=== PATIENT | female | born 1985 | race Caucasian/White ===

== ENCOUNTER 2017-05-30 20:37 | Emergency (ER) | payer OTHER ==
[2017-05-30 20:59] VITALS: BP 109/67; PULSE 70; TEMP 98.4; BMI 21.2
[2017-05-30] MEDS ORDERED: PANTOPRAZOLE SODIUM 40 MG in SODIUM CHLORIDE 100 ML IVPB ONE (21:45)
[2017-05-30] MEDS ORDERED: PANTOPRAZOLE SODIUM 100 ML IVPB ONE (21:59)
[2017-05-30 22:04] LABS: PH,URINE 6.5 (5.0-8.0); URINE APPEARANCE CLEAR; URINE BILIRUBIN NEGATIVE (NEGATIVE); URINE BLOOD NEGATIVE (NEGATIVE); URINE COLOR LT. YELLOW; URINE GLUCOSE (UA) NEGATIVE (NEGATIVE); URINE KETONE NEGATIVE (NEGATIVE); URINE LEUK ESTERASE NEGATIVE (NEGATIVE); URINE NITRITE NEGATIVE (NEGATIVE); URINE PROTEIN NEGATIVE (NEGATIVE); URINE UROBILINOGEN 0.2 mg/dL (0.2-1.0)
[2017-05-30 22:07] LABS: BASOPHIL 0.4 % (0-2.0); EOSINOPHIL 1.2 % (0-4.5); MCHC 34.6 g/dl (32.0-36.0); MEAN CELL VOLUME 89.7 fl (80-96); MEAN PLT VOLUME 7.8 fl (7.5-11.1); NEUTROPHILS 65.6 % (42.8-82.8); PLATELET COUNT 201 K/MM3 (134-434); WHITE BLOOD COUNT 5.2 K/mm3 (4.0-10.0)
[2017-05-30] MEDS ORDERED: KETOROLAC TROMETHAMINE 30 MG/1 ML VIAL IVPUSH ONE (22:30)
[2017-05-30] MEDS ORDERED: ALPRAZolam 0.25 MG TABLET PO ONE ×2 (22:30→23:16)
[2017-05-30] MEDS ORDERED: KETOROLAC TROMETHAMINE 30 MG/1 ML VIAL ONE (22:32)
--- NOTE | 2017-05-30 22:32 | PDOC ---
History of Present Illness - General Chief Complaint: Respiratory Stated Complaint: PAIN Time Seen by Provider: 05/30/17 21:19 History Source: Patient, Spouse Exam Limitations: No Limitations - History of Present Illness Initial Comments: 05/30/17 22:27 31yo Female patient with no significant past medical history presents to ED with multiple complaints. Patient reports having CP and Back pain for the past few months, but yesterday got worse with trouble breathing. Patient states she took Motrin 600mg and Protonix 40mg from 2016 and felt better, but when symptoms return today the medications did not help. She denies fall, injury, n/v /d, fever, cough, congestion, , SOB, Abd pain, or any other complaints at this time. LNMP: May 09. Timing/Duration: getting worse Severity: mild Modifying Factors: improves with: medication. worse with: cold therapy, eating , immobilization, movement, rest, other Associated Symptoms: reports: chest pain. denies: denies symptoms, cough, diaphoresis, fever/chills, headaches, loss of appetite, malaise, nausea/vomiting , rash, seizure, shortness of breath, syncope, weakness, other Aspirin Received prior to arrival: Yes: no aspirin today. No: unknown, 81 mg x 1, 81 mg x 2, 81 mg x 3, 81 mg x 4, 325 mg x 1, provided at home, provided by EMS, provided by ED Past History - Travel Traveled outside of the country in the last 30 days: No Close contact w/someone who was outside of country & ill: No - Past Medical History Allergies/Adverse Reactions: Allergies Allergy/AdvReac Type Severity Reaction Status Date / Time No Known Allergies Allergy Verified 05/30/17 20:58 Home Medications: Ambulatory Orders Alprazolam [Xanax] 0.25 mg PO TID PRN #9 tablet MDD 3 tabs 05/30/17 Other medical history: denies - Surgical History Appendectomy: Yes - Suicide/Smoking/Psychosocial Hx Smoking History: Never smoked Review of Systems - Review of Systems Able to Perform ROS?: Yes Is the patient limited Welsh proficient: No Constitutional: No: Chills, Fever Respiratory: No: Cough, Shortness of Breath, Stridor, Wheezing, Productive cough Cardiac (ROS): Yes: Chest Pain. No: Edema, Lightheadedness, Palpitations, Syncope, Chest Tightness ABD/GI: No: Constipated, Diarrhea, Nausea, Poor Appetite, Poor Fluid Intake, Rectal Bleeding, Vomiting, Abdominal cramping : No: Burning, Dysuria, Flank Pain, Hematuria, Pain Musculoskeletal: Yes: Back Pain. No: Muscle Pain, Muscle Weakness Integumentary: No: Bruising, Dryness, Erythema, Sweating Neurological: Yes: Dizziness. No: Headache, Numbness, Paresthesia, Seizure, Tingling, Tremors, Weakness All Other Systems: Reviewed and Negative *Physical Exam - Vital Signs Last Vital Signs Temp Pulse Resp BP Pulse Ox 98.4 F 70 18 109/67 100 05/30/17 20:56 05/30/17 20:56 05/30/17 20:56 05/30/17 20:56 05/30/17 20:56 - Physical Exam General Appearance: Yes: Nourished, Appropriately Dressed. No: Apparent Distress, Mild Distress, Moderate Distress, Severe Distress HEENT: positive: EOMI, JENNIFER, Normal ENT Inspection, Normal Voice, Symmetrical, TMs Normal, Pharynx Normal. negative: Pharyngeal Erythema, Tonsillar Exudate, Tonsillar Erythema, Nasal Congestion, Rhinorrhea, TM Bulging, TM Dull, TM Erythema Neck: positive: Trachea midline, Normal Thyroid, Supple. negative: Rigid, Stridor, Lymphadenopathy (R), Lymphadenopathy (L), Tender lateral, Tender midline Respiratory/Chest: positive: Lungs Clear, Normal Breath Sounds. negative: Chest Tender, Respiratory Distress, Accessory Muscle Use, Labored Respiration, Rapid RR, Decreased Breath Sounds, Paradoxal Breathing, Rhonchi, Stridor, Wheezing Cardiovascular: positive: Regular Rhythm, Regular Rate Gastrointestinal/Abdominal: positive: Soft, Increased Bowel Sounds. negative: Normal Bowel Sounds, Tender, Distended, Guarding, Rebound, Tenderness Musculoskeletal: positive: Normal Inspection. negative: CVA Tenderness, Decreased Range of Motion, Vertebral Tenderness Extremity: positive: Normal Capillary Refill, Normal Inspection, Normal Range of Motion. negative: Pedal Edema, Swelling, Calf Tenderness, Erythema, Inflammation Integumentary: positive: Normal Color, Dry, Warm Neurologic: positive: enterprise resource planner II-XII NML intact, Fully Oriented, Alert, Normal Mood/ Affect, Normal Response, Motor Strength 5/5 ED Treatment Course - LABORATORY CBC & Chemistry Diagram: 05/30/17 21:50 05/30/17 21:50 - ADDITIONAL ORDERS Additional order review: Laboratory Results 05/30/17 21:50 Urine Color Lt. yellow Urine Appearance Clear Urine pH 6.5 Urine Protein Negative Urine Glucose (UA) Negative Urine Ketones Negative Urine Blood Negative Urine Nitrite Negative Urine Bilirubin Negative Urine Urobilinogen 0.2 Urine HCG, Qual Negative 05/30/17 21:50 RBC 3.91 MCV 89.7 MCHC 34.6 RDW 13.0 MPV 7.8 Neutrophils % 65.6 Lymphocytes % 25.7 Monocytes % 7.1 Eosinophils % 1.2 Basophils % 0.4 - RADIOLOGY Radiology Studies Ordered: Category Date Time Status CHEST PA & LAT [RAD] Stat Radiology 05/30/17 21:45 Taken - Medications Given in the ED: ED Medications Discontinued Medications Generic Name Dose Route Start Last Admin Trade Name Freq PRN Reason Stop Dose Admin Pantoprazole Sodium 40 mg/ 100 mls @ 200 mls/hr 05/30/17 21:45 05/30/17 22:11 Sodium Chloride IVPB 05/30/17 22:14 200 mls/hr ONCE ONE Administration *DC/Admit/Observation/Transfer Diagnosis at time of Disposition: Anxiety about health Gastroesophageal reflux disease Qualifiers: Esophagitis presence: without esophagitis Qualified Code(s): K21.9 - Gastro- esophageal reflux disease without esophagitis - Discharge Dispostion Disposition: HOME Condition at time of disposition: Improved Admit: No - Prescriptions Prescriptions: Alprazolam [Xanax] 0.25 mg PO TID PRN #9 tablet MDD 3 tabs PRN Reason: Anxiety - Referrals Referrals: STAFF,NOT ON [Primary Care Provider] - Adam Ogden MD [Staff Physician] - - Patient Instructions Printed Discharge Instructions: GERD Diet, DI for Gastroesophageal Reflux Disease (GERD) Additional Instructions: Follow up with Dr. Ogden (Gastroenterology). Call to schedule appointment. Take medications as prescribed. Do not drive, drink alcohol or operate heavy machinery while taking Xanax. Also, follow up with your primary care provider. Purchase [id number] Nexium for Reflux symptoms. Print Language: ESTONIAN
[2017-05-30] MEDS ORDERED: ALPRAZolam 0.25 MG TABLET ONE ×2 (22:34→23:19)
[2017-05-30 22:35] LABS: ALBUMIN 4.1 g/dl (3.4-5.0); ANION GAP 7 (8-16); BILIRUBIN,TOTAL 0.4 mg/dL (0.2-1.0); CALCIUM 8.4 mg/dL (8.5-10.1); CO2 29 mmol/L (21-32); CREATININE 0.6 mg/dL (0.55-1.02); GLUCOSE,RANDOM 99 mg/dL (74-106); SGOT/AST 11 U/L (15-37); SGPT/ALT 21 U/L (12-78); TOT PROT 7.3 g/dl (6.4-8.2)
[2017-05-30] MEDS ORDERED: ALBUTEROL SO4 0.042% IH SOL 1.25 MG/3 ML VIAL.NEB NEB ONE (22:36)
[2017-05-30 22:37] LABS: ALK PHOS 76 U/L (45-117); CPK 114 IU/L (26-192); TROPONIN I < 0.02 ng/ml (0.00-0.05)
[2017-05-30] MEDS ORDERED: ALBUTEROL SO4 0.083% IH SOL 2.5 MG/3 ML VIAL.NEB. NEB ONE (22:39)
== END 2017-05-30 23:24 | disposition home or self-care (01) ==
LOC: JERFT 20:37
PROC: 3E0F7GC Introduction of Other Therapeutic Substance into Respiratory Tract, Via Natural or Artificial Opening (ICD-10-PCS; principal; 2017-05-30)
PROC: 3E033GC Introduction of Other Therapeutic Substance into Peripheral Vein, Percutaneous Approach (ICD-10-PCS; 2017-05-30)
PROC: 3E0333Z Introduction of Anti-inflammatory into Peripheral Vein, Percutaneous Approach (ICD-10-PCS; 2017-05-30)
DX: K21.9 Gastro-esophageal reflux disease without esophagitis (principal); F06.4 Anxiety disorder due to known physiological condition
CPT/HCPCS: 36415; 71020-TC; 80053; 81003; 84484; 84703; 85025; 94640; 96365; 96375; 99281-25

== ENCOUNTER 2017-06-03 16:47 | Inpatient (IN) | payer OTHER ==
[2017-06-03 17:04] VITALS: BMI 21.2
--- NOTE | 2017-06-03 17:23 | PDOC ---
History of Present Illness <Adam Felder - Last Filed: 06/03/17 17:23> - History of Present Illness Initial Comments: 06/03/17 17:41 Patient is a 31 year old female with PMHx of chronic headaches, who presents to the emergency department complaining of chest pain today at 3:00 pm. Patient visited [facility] 4 days ago with the same complaint of chest pain. She reports having chest pain over a period of a couple of months. Patient returned to the emergency room because she believes that her medicine is not working. She is currently experience a moderate amount of pain and is moaning and rubbing her abdomen. Her chest pain originates in the center of her chest and radiates to her back. She is also experiencing SOB. She currently takes medication for chronic headaches. Allergies: NKA Past surgical history: None reported. Social history: Nonsmoker. Denies EtOH use and recreational drug use. <Gina Hartman - Last Filed: 06/03/17 17:54> <Liliam Severino - Last Filed: 06/03/17 22:46> - General Chief Complaint: Chest Pain Stated Complaint: CHEST PAIN Time Seen by Provider: 06/03/17 17:23 Past History - Past Medical History Other medical history: DENIES - Surgical History Appendectomy: Yes - Immunization History Immunization Up to Date: Yes - Suicide/Smoking/Psychosocial Hx Smoking History: Never smoked Have you smoked in the past 12 months: No Information on smoking cessation initiated: No Hx Alcohol Use: No Drug/Substance Use Hx: No <Adam Felder - Last Filed: 06/03/17 17:23> <Gina Hartman - Last Filed: 06/03/17 17:54> <Liliam Severino - Last Filed: 06/03/17 22:46> - Past Medical History Allergies/Adverse Reactions: Allergies Allergy/AdvReac Type Severity Reaction Status Date / Time No Known Allergies Allergy Verified 05/30/17 20:58 Home Medications: Ambulatory Orders Ibuprofen [Motrin -] 600 mg PO TID 06/03/17 Review of Systems - Review of Systems Comments:: 06/03/17 17:42 GENERAL/CONSTITUTIONAL: No fever or chills. No weakness. HEAD, EYES, EARS, NOSE AND THROAT: No change in vision. No ear pain or discharge. No sore throat. CARDIOVASCULAR: + chest pain. + shortness of breath. RESPIRATORY: No cough, wheezing, or hemoptysis. GASTROINTESTINAL: No nausea, vomiting, diarrhea or constipation. GENITOURINARY: No dysuria, frequency, or change in urination. MUSCULOSKELETAL: No joint or muscle swelling or pain. No neck or back pain. SKIN: No rash NEUROLOGIC: No headache, vertigo, loss of consciousness, or change in strength/ sensation. ENDOCRINE: No increased thirst. No abnormal weight change. HEMATOLOGIC/LYMPHATIC: No anemia, easy bleeding, or history of blood clots. ALLERGIC/IMMUNOLOGIC: No hives or skin allergy. <Gina Hartman - Last Filed: 06/03/17 17:54> *Physical Exam - Vital Signs Last Vital Signs Temp Pulse Resp BP Pulse Ox 98.2 F 95 H 16 126/74 100 06/03/17 17:00 06/03/17 17:00 06/03/17 17:00 06/03/17 17:00 06/03/17 17:00 <Adam Felder - Last Filed: 06/03/17 17:23> - Vital Signs Last Vital Signs Temp Pulse Resp BP Pulse Ox 98.2 F 95 H 16 126/74 100 06/03/17 17:00 06/03/17 17:00 06/03/17 17:00 06/03/17 17:00 06/03/17 17:00 - Physical Exam Comments: 06/03/17 17:42 GENERAL: Awake, alert, and fully oriented, in no acute distress HEAD: No signs of trauma EYES: PERRLA, EOMI, sclera anicteric, conjunctiva clear ENT: Auricles normal inspection, hearing grossly normal, nares patent, oropharynx clear without exudates. Moist mucosa NECK: Normal ROM, supple, no lymphadenopathy, JVD, or masses LUNGS: Breath sounds equal, clear to auscultation bilaterally. No wheezes, and no crackles HEART: Regular rate and rhythm, normal S1 and S2, no murmurs, rubs or gallops ABDOMEN: +RUQ tenderness. Soft, normoactive bowel sounds. No guarding, no rebound. No masses EXTREMITIES: Normal range of motion, no edema. No clubbing or cyanosis. No cords, erythema, or tenderness NEUROLOGICAL: Cranial nerves II through XII grossly intact. Normal speech, normal gait SKIN: Warm, Dry, normal turgor, no rashes or lesions noted. <Gina Hartman - Last Filed: 06/03/17 17:54> - Vital Signs Last Vital Signs Temp Pulse Resp BP Pulse Ox 98.2 F 95 H 16 126/74 100 06/03/17 17:00 06/03/17 17:00 06/03/17 17:00 06/03/17 17:00 06/03/17 17:00 <iLliam Severino - Last Filed: 06/03/17 22:46> Heart Score/ECG Review - ECG Impressions Comment:: 06/03/17 17:51 Normal sinus rhythm at 97 bpm Incomplete right bundle branch block <Gina Hartman - Last Filed: 06/03/17 17:54> ED Treatment Course - LABORATORY CBC & Chemistry Diagram: 06/03/17 18:00 06/03/17 18:30 - ADDITIONAL ORDERS Additional order review: Laboratory Results 06/03/17 06/03/17 06/03/17 Unknown 20:18 18:30 PT with INR INR D-Dimer Sodium Potassium Chloride Carbon Dioxide Anion Gap BUN Creatinine Creat Clearance w eGFR Random Glucose Calcium Total Bilirubin AST ALT Alkaline Phosphatase Creatine Kinase Troponin I Total Protein Albumin Lipase 136 Serum , Qual Negative Urine Color Yellow Urine Appearance Cloudy Urine pH 6.0 Ur Specific Amasa Urine Protein Negative Urine Glucose (UA) Negative Urine Ketones Negative Urine Blood Negative Urine Nitrite Negative Urine Bilirubin Negative Urine Urobilinogen Negative 06/03/17 06/03/17 06/03/17 18:30 18:30 18:00 PT with INR INR D-Dimer Sodium 139 Potassium 3.7 Chloride 106 Carbon Dioxide 27 Anion Gap 6 L BUN 13 Creatinine 0.5 L Creat Clearance w eGFR > 60 Random Glucose 128 H D Calcium 8.6 Total Bilirubin 0.3 D AST 191 H D ALT 102 H D Alkaline Phosphatase 104 D Creatine Kinase 79 Troponin I < 0.02 Total Protein 6.6 Albumin 3.6 Lipase Cancelled Serum , Qual Urine Color Urine Appearance Urine pH Ur Specific Amasa Urine Protein Urine Glucose (UA) Urine Ketones Urine Blood Urine Nitrite Urine Bilirubin Urine Urobilinogen 06/03/17 06/03/17 06/03/17 18:00 18:00 18:00 PT with INR 11.80 INR 1.07 D-Dimer 318 H Sodium Cancelled Potassium Cancelled Chloride Cancelled Carbon Dioxide Cancelled Anion Gap Cancelled BUN Cancelled Creatinine Cancelled Creat Clearance w eGFR Cancelled Random Glucose Cancelled Calcium Cancelled Total Bilirubin Cancelled AST Cancelled ALT Cancelled Alkaline Phosphatase Cancelled Creatine Kinase Cancelled Troponin I Cancelled Total Protein Cancelled Albumin Cancelled Lipase Serum , Qual Cancelled Urine Color Cancelled Urine Appearance Cancelled Urine pH Cancelled Ur Specific Amasa Cancelled Urine Protein Cancelled Urine Glucose (UA) Cancelled Urine Ketones Cancelled Urine Blood Cancelled Urine Nitrite Cancelled Urine Bilirubin Cancelled Urine Urobilinogen Cancelled 06/03/17 18:00 RBC 3.89 MCV 90.2 MCHC 34.2 RDW 12.9 MPV 8.5 Neutrophils % 71.4 Lymphocytes % 21.5 Monocytes % 5.6 Eosinophils % 1.1 Basophils % 0.4 - Medications Given in the ED: ED Medications Discontinued Medications Generic Name Dose Route Start Last Admin Trade Name Freq PRN Reason Stop Dose Admin Hydromorphone HCl 0.5 mg 06/03/17 17:33 06/03/17 18:12 Dilaudid Injection - IVPUSH 06/03/17 17:34 0.5 mg ONCE ONE Administration Ketorolac Tromethamine 30 mg 06/03/17 17:33 06/03/17 18:13 Toradol Injection - IVPUSH 06/03/17 17:34 30 mg ONCE ONE Administration Ondansetron HCl 4 mg 06/03/17 17:33 06/03/17 18:14 Zofran Injection IVPUSH 06/03/17 17:34 4 mg ONCE ONE Administration <Liliam Severino - Last Filed: 06/03/17 22:46> *DC/Admit/Observation/Transfer - Attestations Physician Attestion: 06/03/17 17:23 I, Dr. Adam Felder, attest that this document has been prepared under my direction and personally reviewed by me in its entirety. I further attest, that it accurately reflects all work, treatment, procedures and medical decision -making performed by me. <Adam Felder - Last Filed: 06/03/17 17:23> - Attestations Scribe Attestion: 06/03/17 17:43 Documentation prepared by Gina Hartman, acting as vice president medical affairs for Adam Felder DO. <Gina Hartman - Last Filed: 06/03/17 17:54> - Discharge Dispostion Admit: Yes <Liliam Severino - Last Filed: 06/03/17 22:46> Diagnosis at time of Disposition: Calculus of common bile duct with acute cholecystitis
[2017-06-03] MEDS ORDERED: KETOROLAC TROMETHAMINE 30 MG/1 ML VIAL IVPUSH ONE (17:33)
[2017-06-03] MEDS ORDERED: ONDANSETRON 4 MG/2 ML VIAL IVPUSH ONE (17:33)
[2017-06-03] MEDS ORDERED: HYDROmorphone HCL CARPU-JECT 1 MG/1 ML DISP.SYRIN IVPUSH ONE (17:33)
[2017-06-03] MEDS ORDERED: ONDANSETRON 4 MG/2 ML VIAL ONE ×2 (17:56→17:57)
[2017-06-03] MEDS ORDERED: HYDROmorphone HCL CARPU-JECT 1 MG/1 ML DISP.SYRIN ONE (17:56)
[2017-06-03] MEDS ORDERED: KETOROLAC TROMETHAMINE 30 MG/1 ML VIAL ONE (17:56)
[2017-06-03 18:15] LABS: BASOPHIL 0.4 % (0-2.0); EOSINOPHIL 1.1 % (0-4.5); MCH 30.9 pg (25.7-33.7); MCHC 34.2 g/dl (32.0-36.0); MEAN CELL VOLUME 90.2 fl (80-96); MEAN PLT VOLUME 8.5 fl (7.5-11.1); NEUTROPHILS 71.4 % (42.8-82.8); PLATELET COUNT 206 K/MM3 (134-434); RDW 12.9 % (11.6-15.6)
[2017-06-03 19:01] LABS: INR 1.07 (0.82-1.09); PROTHROMBIN TIME (PATIENT) 11.8 SEC (9.98-11.88)
[2017-06-03 19:40] LABS: ALBUMIN 3.6 g/dl (3.4-5.0); ANION GAP 6 (8-16); BILIRUBIN,TOTAL 0.3 mg/dL (0.2-1.0); CALCIUM 8.6 mg/dL (8.5-10.1); CO2 27 mmol/L (21-32); CREATININE 0.5 mg/dL (0.55-1.02); GLUCOSE,RANDOM 128 mg/dL (74-106); SGOT/AST 191 U/L (15-37); SGPT/ALT 102 U/L (12-78); TOT PROT 6.6 g/dl (6.4-8.2)
[2017-06-03 19:41] LABS: ALK PHOS 104 U/L (45-117)
[2017-06-03 19:48] LABS: CPK 79 IU/L (26-192); TROPONIN I < 0.02 ng/ml (0.00-0.05)
[2017-06-03 20:40] LABS: URINE APPEARANCE CLOUDY; URINE BILIRUBIN NEGATIVE (NEGATIVE); URINE BLOOD NEGATIVE (NEGATIVE); URINE COLOR YELLOW; URINE GLUCOSE (UA) NEGATIVE (NEGATIVE); URINE KETONE NEGATIVE (NEGATIVE); URINE LEUK ESTERASE NEGATIVE (NEGATIVE); URINE NITRITE NEGATIVE (NEGATIVE); URINE PROTEIN NEGATIVE (NEGATIVE); URINE UROBILINOGEN NEGATIVE mg/dL (0.2-1.0)
--- NOTE | 2017-06-03 22:41 | PN ---
Teaching Attending Note Name of Resident: Ugo David ATTENDING PHYSICIAN STATEMENT I saw and evaluated the patient. I reviewed the resident's note and discussed the case with the resident. I agree with the resident's findings and plan as documented. SUBJECTIVE: 31 yo F with hx of chronic headaches who presented with chest pain radiating to her back. States that her pain is located in her upper epigastric pain. States her chest pain is located on the left side, more toward her left breast and she states it is tender when she touched her left chest. OBJECTIVE: Physical: VS: Vital Signs Period Temp Pulse Resp BP Sys/Juares Pulse Ox Last 24 Hr 98.2 F 95 16 126/74 100 GEN: NAD, Resting in bed HEENT: NCAT, PERRL, throat without erythema or exudated CARD: RRR S1, S2 RESP: CTAB ABD: BSx4, tender to palpation in right upper quadrant EXT: - C/C/E CBCD WBC 5.0 K/mm3 (4.0-10.0) 06/03/17 18:00 RBC 3.89 M/mm3 (3.60-5.2) 06/03/17 18:00 Hgb 12.0 GM/dL (10.7-15.3) 06/03/17 18:00 Hct 35.1 % (32.4-45.2) 06/03/17 18:00 MCV 90.2 fl (80-96) 06/03/17 18:00 MCHC 34.2 g/dl (32.0-36.0) 06/03/17 18:00 RDW 12.9 % (11.6-15.6) 06/03/17 18:00 Plt Count 206 K/MM3 (134-434) 06/03/17 18:00 MPV 8.5 fl (7.5-11.1) 06/03/17 18:00 CMP Sodium 139 mmol/L (136-145) 06/03/17 18:30 Potassium 3.7 mmol/L (3.5-5.1) 06/03/17 18:30 Chloride 106 mmol/L (98-107) 06/03/17 18:30 Carbon Dioxide 27 mmol/L (21-32) 06/03/17 18:30 Anion Gap 6 (8-16) L 06/03/17 18:30 BUN 13 mg/dL (7-18) 06/03/17 18:30 Creatinine 0.5 mg/dL (0.55-1.02) L 06/03/17 18:30 Creat Clearance w eGFR > 60 (>60) 06/03/17 18:30 Random Glucose 128 mg/dL (74-106) H D 06/03/17 18:30 Calcium 8.6 mg/dL (8.5-10.1) 06/03/17 18:30 Total Bilirubin 0.3 mg/dL (0.2-1.0) D 06/03/17 18:30 AST 191 U/L (15-37) H D 06/03/17 18:30 ALT 102 U/L (12-78) H D 06/03/17 18:30 Alkaline Phosphatase 104 U/L (45-117) D 06/03/17 18:30 Total Protein 6.6 g/dl (6.4-8.2) 06/03/17 18:30 Albumin 3.6 g/dl (3.4-5.0) 06/03/17 18:30 CARDIAC ENZYMES Creatine Kinase 79 IU/L (26-192) 06/03/17 18:30 Troponin I < 0.02 ng/ml (0.00-0.05) 06/03/17 18:30 EKG: NSR Incomplete RBBB CTA- Negative for PE or any acute process Gallbladder Us: Multiple gallstones with mild wall thickening and w/o evidence of pericholycystic free fluid. Dilated CBD with intraluminal stone 14 X 8 mm in saggital and AP dimension. ASSESSMENT AND PLAN: 31 yo F who presented with chest pain found to have choledocholithiaisis 1.) Choledocholithiasis - NPO - MRCP in am - GI consult - Trend LFTS - Type and Screen - Coags - pain control 2.) Chest Pain- Most likely [place], doubt ACS - Trend Trops/EKG - Heart 1 3.) Dvt Ppx - Low Risk - Ambulate Place in Med-Sx
--- NOTE | 2017-06-03 23:39 | HP ---
Admitting History and Physical - Primary Care Physician PCP: not on staff - Admission History of Present Illness: 31F history of migraines presents to the ED with a few day history of chest pain and abdominal pain. Seen in ED here on 05/30/17 and sent out with candace thought to have anxiety. Presents again with similar symtpoms CTA ruled out PE. RUQ US shows choloedocholithiasis. Per patient she hgad an endoscopy as an outpatient this past friday and was told she needs an ultrasound due to a possible stone. She has mamograms every 6 months for some kind of breast mass patient is unsure and yearly MRIs for headaches unsure why. History Source: Patient Limitations to Obtaining History: Language Barrier - Past Medical History Additional Past Medical History: migraines breast mass - Past Surgical History Past Surgical History: Yes: Appendectomy - Smoking History Smoking history: Never smoked Have you smoked in the past 12 months: No - Alcohol/Substance Use Hx Alcohol Use: No Home Medications - Allergies Allergies/Adverse Reactions: Allergies Allergy/AdvReac Type Severity Reaction Status Date / Time No Known Allergies Allergy Verified 05/30/17 20:58 - Home Medications Home Medications: Ambulatory Orders Ibuprofen [Motrin -] 600 mg PO TID 06/03/17 Family Disease History - Family Disease History Family Disease History: Other: Father (gall stones), Mother (gall stones ) Review of Systems - Review of Systems Gastrointestinal: reports: Abdominal Pain. denies: Constipation, Diarrhea, Indigestion, Vomiting Physical Examination Vital Signs: Vital Signs Temperature 98.2 F 06/03/17 17:00 Pulse Rate 95 H 06/03/17 17:00 Respiratory Rate 16 06/03/17 17:00 Blood Pressure 126/74 06/03/17 17:00 O2 Sat by Pulse Oximetry (%) 100 06/03/17 17:00 Constitutional: Yes: Well Nourished, No Distress, Calm Eyes: Yes: Conjunctiva Clear HENT: Yes: Atraumatic Neck: Yes: Supple, Trachea Midline Cardiovascular: Yes: Regular Rate and Rhythm, S1, S2 Respiratory: Yes: Regular, CTA Bilaterally Gastrointestinal: Yes: Normal Bowel Sounds, Soft, Tenderness (slight RUQ tenderness negative murphys) Edema: No Psychiatric: Yes: Alert, Oriented Labs: CBC, BMP 06/03/17 18:00 06/03/17 18:30 Imaging - Results Chest X-ray: Report Reviewed, Image Reviewed Cat Scan: Report Reviewed, Image Reviewed Ultrasound: Report Reviewed Assessment/Plan 31F with no significant PMH presents to the ED with chest pain found to have choledocholithiasis Problem list: Choledocholithisis chronic migraines ?? Brain lesion ?? breast lesion hyperglycemia Plan: Admit to med surg NPO IVF GI consult Surgery consult no need for ABx at this time afebrile and no leukocytosis hyperglycemia likely reactive will monitor and get HbA1c if necessary MRCP although may need to go straight to ERCP outpatient follow up for continued preventive care DVT PPx full h&P to follow case discussed with admitting intern brand and attending Visit type - Emergency Visit Emergency Visit: Yes Care time: The patient presented to the Emergency Department on the above date and was hospitalized for further evaluation of their emergent condition. - New Patient This patient is new to me today: Yes Date on this admission: 06/04/17 - Critical Care Critical Care patient: No
[2017-06-04] MEDS ORDERED: ACETAMINOPHEN 325 MG TABLET (FP) PO PRN (00:06)
[2017-06-04] MEDS: SODIUM CHLORIDE 1,000 ML IV SCH ×3 (00:29→11:52)
--- NOTE | 2017-06-04 00:30 | HP ---
CHIEF COMPLAINT: Upper abdominal pain PCP: Mac Martinez in [place] HISTORY OF PRESENT ILLNESS: Pt is a 31 y/o F with PMH brain lesion (stable), breast lesion (stable), migraine who presented to ED with upper abdominal pain. Pain is sharp, radiates to the chest and back, is severe 10/10, and is associated with eating. The patient was recently seen in the ED for similar complaint and was referred to see a GI specialist as an out pt. Pt lives in [place] and works in [employer] ER course was notable for: (1) labs remarkable for positive D-dimer, mild transaminitis (2) CXR, CTA unremarkable. GB U/S positive for 14mm stone in distal CBD with CBD dilation (3) Recent Travel: denies PAST MEDICAL HISTORY: Brain lesion (unclear what exactly) for which pt sees her doctor in [place] and gets yearly MRI. Pt states it is stable Breast lesion (unclear what type) for which pt gets mamograms every 6 months Migraine PAST SURGICAL HISTORY: Appendectomy Social History: Smoking: Denies Alcohol: Denies Drugs: Denies Family History: Both parents had gall stones Allergies No Known Allergies Allergy (Verified 05/30/17 20:58) fruit HOME MEDICATIONS: Motrin 600mg, Xanax 0.25mg PO TID PRN REVIEW OF SYSTEMS CONSTITUTIONAL: Absent: fever, chills, diaphoresis, generalized weakness, malaise, loss of appetite, weight change HEENT: Absent: rhinorrhea, nasal congestion, throat pain, throat swelling, difficulty swallowing, mouth swelling, ear pain, eye pain, visual changes CARDIOVASCULAR: chest pain Absent: , syncope, palpitations, irregular heart rate, lightheadedness, peripheral edema RESPIRATORY: Absent: cough, shortness of breath, dyspnea with exertion, orthopnea, wheezing, stridor, hemoptysis GASTROINTESTINAL: abdominal pain Absent: , abdominal distension, nausea, vomiting, diarrhea, constipation, melena , hematochezia GENITOURINARY: Absent: dysuria, frequency, urgency, hesitancy, hematuria, flank pain, genital pain MUSCULOSKELETAL: Absent: myalgia, arthralgia, joint swelling, back pain, neck pain SKIN: Absent: rash, itching, pallor HEMATOLOGIC/IMMUNOLOGIC: Absent: easy bleeding, easy bruising, lymphadenopathy, frequent infections ENDOCRINE: Absent: unexplained weight gain, unexplained weight loss, heat intolerance, cold intolerance NEUROLOGIC: Absent: headache, focal weakness or paresthesias, dizziness, unsteady gait, seizure, mental status changes, bladder or bowel incontinence PSYCHIATRIC: Absent: anxiety, depression, suicidal or homicidal ideation, hallucinations. PHYSICAL EXAMINATION Vital Signs - 24 hr 06/03/17 17:00 Temperature 98.2 F Pulse Rate 95 H Respiratory 16 Rate Blood Pressure 126/74 O2 Sat by Pulse 100 Oximetry (%) GENERAL: Awake, alert, and fully oriented, in no acute distress. HEAD: Normal with no signs of trauma. EYES: Pupils equal, round and reactive to light, extraocular movements intact, sclera anicteric, conjunctiva clear. No lid lag. EARS, NOSE, THROAT: oropharynx clear without exudates. Moist mucous membranes. Equal elevation of palate NECK: Normal range of motion, supple without lymphadenopathy, JVD, or masses. No bruits LUNGS: Breath sounds equal, clear to auscultation bilaterally. No wheezes, and no crackles. No accessory muscle use. HEART: Regular rate and rhythm, normal S1 and S2 with soft 2/6 ejection murmur at RUSB, rub or gallop. ABDOMEN: Soft, very mild tenderness to palpation. Wilson's negative., not distended, normoactive bowel sounds, no guarding, no rebound, no masses. No hepatomegaly or splenomegaly. MUSCULOSKELETAL: No CVA tenderness. UPPER EXTREMITIES: 2+ pulses, warm, well-perfused. No cyanosis. No clubbing. No peripheral edema. LOWER EXTREMITIES: 2+ pulses, warm, well-perfused. No calf tenderness. No peripheral edema. NEUROLOGICAL: Cranial nerves II-XII intact. Normal speech. gait not observed. PSYCHIATRIC: Cooperative. Good eye contact. Appropriate mood and affect. SKIN: Warm, dry, normal turgor, no rashes or lesions noted, normal capillary refill. Laboratory Results - last 24 hr 06/03/17 06/03/17 06/03/17 18:00 18:00 18:00 WBC 5.0 RBC 3.89 Hgb 12.0 Hct 35.1 MCV 90.2 MCH 30.9 MCHC 34.2 RDW 12.9 Plt Count 206 MPV 8.5 Neutrophils % 71.4 Lymphocytes % 21.5 Monocytes % 5.6 Eosinophils % 1.1 Basophils % 0.4 PT with INR 11.80 INR 1.07 D-Dimer 318 H Sodium Potassium Chloride Carbon Dioxide Anion Gap BUN Creatinine Creat Clearance w eGFR Random Glucose Calcium Total Bilirubin AST ALT Alkaline Phosphatase Creatine Kinase Troponin I Total Protein Albumin Lipase Serum , Qual Cancelled Urine Color Cancelled Urine Appearance Cancelled Urine pH Cancelled Ur Specific [place] Cancelled Urine Protein Cancelled Urine Glucose (UA) Cancelled Urine Ketones Cancelled Urine Blood Cancelled Urine Nitrite Cancelled Urine Bilirubin Cancelled Urine Urobilinogen Cancelled 06/03/17 06/03/17 06/03/17 18:00 18:00 18:30 WBC RBC Hgb Hct MCV MCH MCHC RDW Plt Count MPV Neutrophils % Lymphocytes % Monocytes % Eosinophils % Basophils % PT with INR INR D-Dimer Sodium Cancelled 139 Potassium Cancelled 3.7 Chloride Cancelled 106 Carbon Dioxide Cancelled 27 Anion Gap Cancelled 6 L BUN Cancelled 13 Creatinine Cancelled 0.5 L Creat Clearance w eGFR Cancelled > 60 Random Glucose Cancelled 128 H D Calcium Cancelled 8.6 Total Bilirubin Cancelled 0.3 D AST Cancelled 191 H D ALT Cancelled 102 H D Alkaline Phosphatase Cancelled 104 D Creatine Kinase Cancelled Troponin I Cancelled Total Protein Cancelled 6.6 Albumin Cancelled 3.6 Lipase Cancelled Serum , Qual Urine Color Urine Appearance Urine pH Ur Specific [place] Urine Protein Urine Glucose (UA) Urine Ketones Urine Blood Urine Nitrite Urine Bilirubin Urine Urobilinogen 06/03/17 06/03/17 06/03/17 18:30 18:30 20:18 WBC RBC Hgb Hct MCV MCH MCHC RDW Plt Count MPV Neutrophils % Lymphocytes % Monocytes % Eosinophils % Basophils % PT with INR INR D-Dimer Sodium Potassium Chloride Carbon Dioxide Anion Gap BUN Creatinine Creat Clearance w eGFR Random Glucose Calcium Total Bilirubin AST ALT Alkaline Phosphatase Creatine Kinase 79 Troponin I < 0.02 Total Protein Albumin Lipase 136 Serum , Qual Urine Color Yellow Urine Appearance Cloudy Urine pH 6.0 Ur Specific [place] 1.020 Urine Protein Negative Urine Glucose (UA) Negative Urine Ketones Negative Urine Blood Negative Urine Nitrite Negative Urine Bilirubin Negative Urine Urobilinogen Negative 06/03/17 Unknown WBC RBC Hgb Hct MCV MCH MCHC RDW Plt Count MPV Neutrophils % Lymphocytes % Monocytes % Eosinophils % Basophils % PT with INR INR D-Dimer Sodium Potassium Chloride Carbon Dioxide Anion Gap BUN Creatinine Creat Clearance w eGFR Random Glucose Calcium Total Bilirubin AST ALT Alkaline Phosphatase Creatine Kinase Troponin I Total Protein Albumin Lipase Serum , Qual Negative Urine Color Urine Appearance Urine pH Ur Specific [place] Urine Protein Urine Glucose (UA) Urine Ketones Urine Blood Urine Nitrite Urine Bilirubin Urine Urobilinogen ASSESSMENT/PLAN: Pt is a 31 y/o F with PMH brain lesion (stable), breast lesion (stable), migraine who presented to ED with abdominal pain. Pt is being admitted for choledocholithiasis. #Choledocholithiasis -RUQ pain. No nausea/vomiting -14mm distal CBD stone on U/S -No pericholecystic fluid, mild wall thickening -Hold Abx as there is no sign of Ascending Cholangitis (no fever, no leukocytosis, mild discomfort). Will monitor. -ERCP in am -NPO -NS at 100 -Zofran PRN -Tylenol 650 PRN, Morphine 2mg Q6 PRN #Transaminitis -likely 2/2 choledocholithiasis -trend LFTs -GI consult #GERD -symptoms possibly 2/2 choledocholithiasis -pt went home with protonix last visit and said it did not help -No clear GERD symptoms at this time. Will monitor #Migraine -Tylenol PRN -Morphine PRN #Breast lesion -f/u outpatient as per PCP #Brain lesion -f/u outpatient as per PCP #FEN -NS @ 100 -lytes WNL -NPO #Dispo: Admit to Med-Surg for choledocholithiasis workup and treatment Case discussed with senior Ugo David MD PGY-1 Visit type - Emergency Visit Emergency Visit: Yes ED Registration Date: 06/03/17 Care time: The patient presented to the Emergency Department on the above date and was hospitalized for further evaluation of their emergent condition. - New Patient This patient is new to me today: Yes Date on this admission: 06/05/17 - Critical Care Critical Care patient: No
[2017-06-04] MEDS ORDERED: HEPARIN NA (PORCINE) 5,000 UNITS/ML 1ML VIAL SQ SCH (06:00)
[2017-06-04 06:29] LABS: BASOPHIL 0.3 % (0-2.0); EOSINOPHIL 0.7 % (0-4.5); MCH 31.1 pg (25.7-33.7); MCHC 34.7 g/dl (32.0-36.0); MEAN CELL VOLUME 89.8 fl (80-96); MEAN PLT VOLUME 7.8 fl (7.5-11.1); NEUTROPHILS 66.6 % (42.8-82.8); PLATELET COUNT 192 K/MM3 (134-434); RDW 12.9 % (11.6-15.6); WHITE BLOOD COUNT 5.4 K/mm3 (4.0-10.0)
[2017-06-04 06:41] LABS: INR 1.11 (0.82-1.09); PROTHROMBIN TIME (PATIENT) 12.2 SEC (9.98-11.88)
[2017-06-04 06:44] LABS: ACTIVATED PTT 33.1 SECONDS (26.9-34.4)
[2017-06-04 06:52] LABS: ALBUMIN 3.4 g/dl (3.4-5.0); ANION GAP 9 (8-16); BILIRUBIN,TOTAL 0.4 mg/dL (0.2-1.0); CALCIUM 7.9 mg/dL (8.5-10.1); CO2 25 mmol/L (21-32); CREATININE 0.3 mg/dL (0.55-1.02); GLUCOSE,RANDOM 84 mg/dL (74-106); MAGNESIUM 1.9 mg/dL (1.8-2.4); PHOSPHOROUS 2.7 mg/dL (2.5-4.9); SGOT/AST 77 U/L (15-37); SGPT/ALT 114 U/L (12-78); TOT PROT 6.1 g/dl (6.4-8.2)
[2017-06-04 06:53] LABS: ALK PHOS 96 U/L (45-117)
[2017-06-04 07:06] LABS: CPK 63 IU/L (26-192); TROPONIN I < 0.02 ng/ml (0.00-0.05)
--- NOTE | 2017-06-04 08:00 | PN ---
Physical Exam: SUBJECTIVE: Patient seen and examined at bedside. States that pain is controlled. No nausea today. No new complaints. OBJECTIVE: Vital Signs Period Temp Pulse Resp BP Sys/Juares Pulse Ox Last 24 Hr 70 103/59 97 GENERAL: The patient is awake, alert, and fully oriented, in no acute distress. HEAD: Normal with no signs of trauma. EYES: PERRL, extraocular movements intact, sclera anicteric, conjunctiva clear. No ptosis. ENT: oropharynx clear without exudates, moist mucous membranes. NECK: Trachea midline, full range of motion, supple. LUNGS: Breath sounds equal, clear to auscultation bilaterally, no wheezes, no crackles, no accessory muscle use. HEART: Regular rate and rhythm, S1, S2 without murmur, rub or gallop. ABDOMEN: Soft, mild tenderness to palpation in the lower quadrants, nondistended , normoactive bowel sounds, no guarding, no rebound, no hepatosplenomegaly, no masses. Wilson sign positive EXTREMITIES: 2+ pulses, warm, well-perfused, no edema. NEUROLOGICAL: Cranial nerves II through X grossly intact. Normal speech, gait not observed. normal strength, sensation intact. PSYCH: Normal mood, normal affect. SKIN: Warm, dry, normal turgor, no rashes or lesions noted Laboratory Results - last 24 hr 06/03/17 06/04/17 06/04/17 Unknown 06:00 06:00 WBC 5.4 RBC 3.79 Hgb 11.8 Hct 34.0 MCV 89.8 MCH 31.1 MCHC 34.7 RDW 12.9 Plt Count 192 MPV 7.8 Neutrophils % 66.6 Lymphocytes % 27.2 D Monocytes % 5.2 Eosinophils % 0.7 Basophils % 0.3 PT with INR INR PTT (Actin FS) Sodium Potassium Chloride Carbon Dioxide Anion Gap BUN Creatinine Creat Clearance w eGFR Random Glucose Calcium Phosphorus Magnesium Total Bilirubin AST ALT Alkaline Phosphatase Creatine Kinase 63 Troponin I < 0.02 Total Protein Albumin Serum , Qual Negative 06/04/17 06/04/17 06:00 06:00 WBC RBC Hgb Hct MCV MCH MCHC RDW Plt Count MPV Neutrophils % Lymphocytes % Monocytes % Eosinophils % Basophils % PT with INR 12.20 H INR 1.11 PTT (Actin FS) 33.1 Sodium 142 Potassium 3.7 Chloride 108 H Carbon Dioxide 25 Anion Gap 9 BUN 10 D Creatinine 0.3 L D Creat Clearance w eGFR > 60 Random Glucose 84 D Calcium 7.9 L Phosphorus 2.7 Magnesium 1.9 Total Bilirubin 0.4 D AST 77 H D ALT 114 H Alkaline Phosphatase 96 Creatine Kinase Troponin I Total Protein 6.1 L Albumin 3.4 Serum , Qual Active Medications Generic Name Dose Route Start Last Admin Trade Name Freq PRN Reason Stop Dose Admin Sodium Chloride 1,000 mls @ 100 mls/hr 06/03/17 23:45 06/04/17 00:29 Normal Saline - IV 100 mls/hr ASDIR PEDRO Administration Sodium Chloride 1,000 mls @ 75 mls/hr 06/04/17 01:45 06/04/17 02:00 Normal Saline - IV 75 mls/hr ASDIR PEDRO Administration Morphine Sulfate 2 mg 06/03/17 23:46 Morphine Injection - IVPUSH Q4H PRN PAIN Ondansetron HCl 4 mg 06/04/17 00:03 Zofran Injection IVPB Q4H PRN NAUSEA AND/OR VOMITING ASSESSMENT/PLAN: Pt is a 31 y/o F with PMH brain lesion (stable), breast lesion (stable), migraine who presented to ED with abdominal pain. Pt is being admitted for choledocholithiasis. #RUQ tenderness 2/2 Choledocholithiasis -RUQ US shows 14mm distal CBD stone, No pericholecystic fluid, mild wall thickening -Abx Held as there is no sign of infection at this time -GI consult suggests ERCP -surgery consult for possible cholecystectomy -NS at 100 -Zofran PRN -Tylenol 650 PRN, Morphine 2mg Q6 PRN #Transaminitis -likely 2/2 choledocholithiasis -trend LFTs #GERD -symptoms possibly 2/2 choledocholithiasis -No clear GERD symptoms at this time. Will monitor #Migraines -Tylenol PRN -Morphine PRN #Breast lesion -f/u outpatient as per PCP -c/o breast pain today; patient is due to begin menstruation soon; will monitor #Brain lesion -f/u outpatient as per PCP #FEN -NS @ 100 -lytes WNL -NPO #Dispo: -Admit to Med-Surg for choledocholithiasis workup and treatment Visit type - Emergency Visit Emergency Visit: Yes ED Registration Date: 06/03/17 Care time: The patient presented to the Emergency Department on the above date and was hospitalized for further evaluation of their emergent condition. - New Patient This patient is new to me today: Yes Date on this admission: 06/04/17 - Critical Care Critical Care patient: No
--- NOTE | 2017-06-04 09:20 | CONSULT ---
Consult Consult Specialty:: GI Referred by:: Dr. Atwood Reason for Consultation:: abdominal pain - History of Present Illness History of Present Illness: Chart and H&P reviewed. Epigastric pain of 2 days duration with nausea, w/o vomiting, fever, chills, diarrhea. Acute onset, no alleviating/aggravating factors. No dysphagia, odynophagia, GERD-like symptoms. No prior history of the same. No ill contacts, traveling. - History Source History Provided By: Patient, Medical Record Limitations to Obtaining History: No Limitations - Past Medical History Gastrointestinal: No: Constipation, GERD, GI Bleed, Irritable Bowel Disease, Pancreatitis, Peptic Ulcer Disease - Past Surgical History Past Surgical History: Yes: Appendectomy - Alcohol/Substance Use Hx Alcohol Use: No - Smoking History Smoking history: Never smoked Have you smoked in the past 12 months: No Home Medications - Allergies Allergies/Adverse Reactions: Allergies Allergy/AdvReac Type Severity Reaction Status Date / Time No Known Allergies Allergy Verified 05/30/17 20:58 - Home Medications Home Medications: Ambulatory Orders Ibuprofen [Motrin -] 600 mg PO TID 06/03/17 Family Disease History - Family Disease History Family History: Unremarkable Family Disease History: Other: Father (gall stones), Mother (gall stones ) Review of Systems Findings/Remarks: H&P reviewed - Review of Systems Constitutional: denies: Chills, Fever, Lethargy, Night Sweats, Unintentional Wgt. Loss HENT: reports: No Symptoms Neck: reports: No Symptoms Cardiovascular: reports: No Symptoms Respiratory: reports: No Symptoms Gastrointestinal: reports: Abdominal Pain, Nausea. denies: Bloating, Constipation, Diarrhea, Dysphagia, Indigestion, Melena, Rectal Bleeding, Vomiting, Vomiting Blood Genitourinary: reports: No Symptoms Breasts: reports: Other (r. breast pain, chronic, 4 systs) Musculoskeletal: reports: Back Pain (mid scapular) Hematology/Lymphatic: denies: Easily Bruised, Excessive Bleeding Physical Exam Vital Signs: Vital Signs Temperature 98.2 F 06/03/17 17:00 Pulse Rate 70 06/04/17 07:15 Respiratory Rate 16 06/03/17 17:00 Blood Pressure 103/59 06/04/17 07:15 O2 Sat by Pulse Oximetry (%) 97 06/04/17 07:15 Constitutional: Yes: Well Nourished, No Distress, Calm Eyes: Yes: Conjunctiva Clear HENT: Yes: Atraumatic, Normocephalic Neck: Yes: Supple Cardiovascular: Yes: Regular Rate and Rhythm Respiratory: Yes: Regular, CTA Bilaterally Gastrointestinal: Yes: Normal Bowel Sounds, Soft, Other (positive rutherford's). No : Abdomen, Obese, Ascites, Distention, Hematemesis, Hepatomegaly, Palpable Mass , Pulsatile Mass, Rectal Bleeding, Tenderness, Tenderness, Epigastrium, Tenderness, Rebound Breast(s): Yes: Other (not examined. c/o r. breast pain. known to have 4 systs. Asking for MRI) Musculoskeletal: Yes: WNL Extremities: Yes: WNL Edema: No Integumentary: No: Jaundice Neurological: Yes: Alert, Oriented Labs: CBC, BMP 06/04/17 06:00 06/04/17 06:00 Current Medications Generic Name Dose Route Start Last Admin Trade Name Freq PRN Reason Stop Dose Admin Sodium Chloride 1,000 mls @ 100 mls/hr 06/03/17 23:45 06/04/17 00:29 Normal Saline - IV 100 mls/hr ASDIR PEDRO Administration Sodium Chloride 1,000 mls @ 75 mls/hr 06/04/17 01:45 06/04/17 02:00 Normal Saline - IV 75 mls/hr ASDIR PEDRO Administration Morphine Sulfate 2 mg 06/03/17 23:46 Morphine Injection - IVPUSH Q4H PRN PAIN Ondansetron HCl 4 mg 06/04/17 00:03 Zofran Injection IVPB Q4H PRN NAUSEA AND/OR VOMITING Home Medications Medication Instructions Recorded Ibuprofen [Motrin -] 600 mg PO TID 06/03/17 Laboratory Tests 06/03/17 06/03/17 06/03/17 18:00 18:00 18:00 WBC 5.0 RBC 3.89 Hgb 12.0 Hct 35.1 MCV 90.2 MCH 30.9 MCHC 34.2 RDW 12.9 Plt Count 206 MPV 8.5 Neutrophils % 71.4 Lymphocytes % 21.5 Monocytes % 5.6 Eosinophils % 1.1 Basophils % 0.4 PT with INR 11.80 INR 1.07 PTT (Actin FS) D-Dimer 318 H Sodium Potassium Chloride Carbon Dioxide Anion Gap BUN Creatinine Creat Clearance w eGFR Random Glucose Calcium Phosphorus Magnesium Total Bilirubin AST ALT Alkaline Phosphatase Creatine Kinase Troponin I Total Protein Albumin Lipase Serum , Qual Cancelled Urine Color Cancelled Urine Appearance Cancelled Urine pH Cancelled Ur Specific [place] Cancelled Urine Protein Cancelled Urine Glucose (UA) Cancelled Urine Ketones Cancelled Urine Blood Cancelled Urine Nitrite Cancelled Urine Bilirubin Cancelled Urine Urobilinogen Cancelled 06/03/17 06/03/17 06/03/17 18:00 18:00 18:30 WBC RBC Hgb Hct MCV MCH MCHC RDW Plt Count MPV Neutrophils % Lymphocytes % Monocytes % Eosinophils % Basophils % PT with INR INR PTT (Actin FS) D-Dimer Sodium Cancelled 139 Potassium Cancelled 3.7 Chloride Cancelled 106 Carbon Dioxide Cancelled 27 Anion Gap Cancelled 6 L BUN Cancelled 13 Creatinine Cancelled 0.5 L Creat Clearance w eGFR Cancelled > 60 Random Glucose Cancelled 128 H D Calcium Cancelled 8.6 Phosphorus Magnesium Total Bilirubin Cancelled 0.3 D AST Cancelled 191 H D ALT Cancelled 102 H D Alkaline Phosphatase Cancelled 104 D Creatine Kinase Cancelled Troponin I Cancelled Total Protein Cancelled 6.6 Albumin Cancelled 3.6 Lipase Cancelled Serum , Qual Urine Color Urine Appearance Urine pH Ur Specific [place] Urine Protein Urine Glucose (UA) Urine Ketones Urine Blood Urine Nitrite Urine Bilirubin Urine Urobilinogen 06/03/17 06/03/17 06/03/17 18:30 18:30 20:18 WBC RBC Hgb Hct MCV MCH MCHC RDW Plt Count MPV Neutrophils % Lymphocytes % Monocytes % Eosinophils % Basophils % PT with INR INR PTT (Actin FS) D-Dimer Sodium Potassium Chloride Carbon Dioxide Anion Gap BUN Creatinine Creat Clearance w eGFR Random Glucose Calcium Phosphorus Magnesium Total Bilirubin AST ALT Alkaline Phosphatase Creatine Kinase 79 Troponin I < 0.02 Total Protein Albumin Lipase 136 Serum , Qual Urine Color Yellow Urine Appearance Cloudy Urine pH 6.0 Ur Specific [place] 1.020 Urine Protein Negative Urine Glucose (UA) Negative Urine Ketones Negative Urine Blood Negative Urine Nitrite Negative Urine Bilirubin Negative Urine Urobilinogen Negative 06/03/17 06/04/17 06/04/17 Unknown 06:00 06:00 WBC 5.4 RBC 3.79 Hgb 11.8 Hct 34.0 MCV 89.8 MCH 31.1 MCHC 34.7 RDW 12.9 Plt Count 192 MPV 7.8 Neutrophils % 66.6 Lymphocytes % 27.2 D Monocytes % 5.2 Eosinophils % 0.7 Basophils % 0.3 PT with INR INR PTT (Actin FS) D-Dimer Sodium Potassium Chloride Carbon Dioxide Anion Gap BUN Creatinine Creat Clearance w eGFR Random Glucose Calcium Phosphorus Magnesium Total Bilirubin AST ALT Alkaline Phosphatase Creatine Kinase 63 Troponin I < 0.02 Total Protein Albumin Lipase Serum , Qual Negative Urine Color Urine Appearance Urine pH Ur Specific [place] Urine Protein Urine Glucose (UA) Urine Ketones Urine Blood Urine Nitrite Urine Bilirubin Urine Urobilinogen 06/04/17 06/04/17 06:00 06:00 WBC RBC Hgb Hct MCV MCH MCHC RDW Plt Count MPV Neutrophils % Lymphocytes % Monocytes % Eosinophils % Basophils % PT with INR 12.20 H INR 1.11 PTT (Actin FS) 33.1 D-Dimer Sodium 142 Potassium 3.7 Chloride 108 H Carbon Dioxide 25 Anion Gap 9 BUN 10 D Creatinine 0.3 L D Creat Clearance w eGFR > 60 Random Glucose 84 D Calcium 7.9 L Phosphorus 2.7 Magnesium 1.9 Total Bilirubin 0.4 D AST 77 H D ALT 114 H Alkaline Phosphatase 96 Creatine Kinase Troponin I Total Protein 6.1 L Albumin 3.4 Lipase Serum , Qual Urine Color Urine Appearance Urine pH Ur Specific [place] Urine Protein Urine Glucose (UA) Urine Ketones Urine Blood Urine Nitrite Urine Bilirubin Urine Urobilinogen Vital Signs (72 hours) 06/03/17 06/03/17 06/04/17 17:00 21:04 07:15 Temperature 98.2 F Pulse Rate 95 H Pulse Rate [ 70 Left Radial] Respiratory 16 Rate Blood Pressure 126/74 Blood Pressure 103/59 [Right Arm] O2 Sat by Pulse 100 100 97 Oximetry (%) Imaging - Results Ultrasound: Report Reviewed (14 mm cbd with stone) Problem List - Problems (1) Choledocholithiasis with obstruction Assessment/Plan: 14 mm CBD with stone on RUQ US. Positive myrphy's, Mild transaminitis w/o signs of obstruction. Mild generalized abdominal discomfort otherwise. No signs of cholangitis. NPO IV hydration Recommend ERCP Sx evaluation for cholesystectomy Monitor for worsening (LFT, ALP, bIli, fever, chills, pain) Code(s): K80.51 - CALCULUS OF BILE DUCT W/O CHOLANGITIS OR CHOLECYST W OBST Qualifiers: Cholangitis presence: without cholangitis Qualified Code(s): K80.51 - Calculus of bile duct without cholangitis or cholecystitis with obstruction (2) Breast pain, right Assessment/Plan: to be evaluated by primary team Code(s): N64.4 - MASTODYNIA Visit type - Emergency Visit Emergency Visit: No - New Patient This patient is new to me today: Yes Date on this admission: 06/04/17 - Critical Care Critical Care patient: No
--- NOTE | 2017-06-04 09:47 | EKG ---
Test Reason : Blood Pressure : / mmHG Vent. Rate : 097 BPM Atrial Rate : 097 BPM P-R Int : 150 ms QRS Dur : 098 ms QT Int : 362 ms P-R-T Axes : 069 055 047 degrees QTc Int : 459 ms NORMAL SINUS RHYTHM INCOMPLETE RIGHT BUNDLE BRANCH BLOCK BORDERLINE ECG NO PREVIOUS ECGS AVAILABLE Confirmed by CHUYITA DIA MD ([id number]) on 06/04/2017 9:47:32 AM Referred By: Confirmed By:CHUYITA DIA MD
[2017-06-04] MEDS: morphine CARPU-JECT 2 MG/1 ML DISP.SYRIN IVPUSH PRN (11:53)
--- NOTE | 2017-06-04 13:50 | EKG ---
Test Reason : Blood Pressure : / mmHG Vent. Rate : 063 BPM Atrial Rate : 063 BPM P-R Int : 152 ms QRS Dur : 104 ms QT Int : 420 ms P-R-T Axes : 076 058 033 degrees QTc Int : 429 ms NORMAL SINUS RHYTHM INCOMPLETE RIGHT BUNDLE BRANCH BLOCK BORDERLINE ECG WHEN COMPARED WITH ECG OF 03-JUN-2017 17:00, VENT. RATE HAS DECREASED BY 34 BPM Confirmed by CHUYITA DIA MD ([id number]) on 06/04/2017 1:50:13 PM Referred By: Confirmed By:CHUYITA DIA MD
[2017-06-04] MEDS ORDERED: FLU VACCINE QUAD 60 MCG/0.5 ML (MDV 17-18) IM ONE (14:00)
--- NOTE | 2017-06-04 16:33 | PN ---
Progress Note (short form) - Note Progress Note: Choledocholithiasis with acute cholecystitis (Acute) Choledocholithiasis with obstruction (Acute) Abnormal Lab Results 06/03/17 06/03/17 06/04/17 18:00 18:30 06:00 PT with INR 12.20 H D-Dimer 318 H Chloride Anion Gap 6 L Creatinine 0.5 L Random Glucose 128 H D Calcium AST 191 H D ALT 102 H D Total Protein 06/04/17 06:00 PT with INR D-Dimer Chloride 108 H Anion Gap Creatinine 0.3 L D Random Glucose Calcium 7.9 L AST 77 H D ALT 114 H Total Protein 6.1 L INR, PTT INR 1.11 (0.82-1.09) 06/04/17 06:00 Vital Signs Period Temp Pulse Resp BP Sys/Juares Pulse Ox Last 24 Hr 98.2 F-98.4 F 70-95 16-18 103-126/59-75 97-100 My Active Orders 06/05/17 00:01 NPO after midnight [DT] 06/05/17 12:47 ERCP [RADS] Routine Problem List - Problems (1) Choledocholithiasis with obstruction Code(s): K80.51 - CALCULUS OF BILE DUCT W/O CHOLANGITIS OR CHOLECYST W OBST Qualifiers: Cholangitis presence: without cholangitis Qualified Code(s): K80.51 - Calculus of bile duct without cholangitis or cholecystitis with obstruction (2) Breast pain, right Code(s): N64.4 - MASTODYNIA Visit type - Emergency Visit Emergency Visit: No - New Patient This patient is new to me today: No - Critical Care Critical Care patient: No
--- NOTE | 2017-06-04 17:45 | PN ---
Teaching Attending Note Name of Resident: Biju Villarreal ATTENDING PHYSICIAN STATEMENT I saw and evaluated the patient. I reviewed the resident's note and discussed the case with the resident. I agree with the resident's findings and plan as documented. SUBJECTIVE: Abdominal pain is less severe. OBJECTIVE: Vital Signs Period Temp Pulse Resp BP Sys/Juares Pulse Ox Last 24 Hr 98.4 F 70-76 18-18 103-114/59-75 97-100 HEART: S1S2, RRR LUNGS: Clear ABDOMEN: Soft, mild epigastric/RUQ tenderness, non-distended, normal BS EXTREMITIES: No edema Current Medications Generic Name Dose Route Start Last Admin Trade Name Freq PRN Reason Stop Dose Admin Sodium Chloride 1,000 mls @ 75 mls/hr 06/04/17 01:45 06/04/17 02:00 Normal Saline - IV 75 mls/hr ASDIR PEDRO Administration Morphine Sulfate 2 mg 06/03/17 23:46 06/04/17 11:53 Morphine Injection - IVPUSH 2 mg Q4H PRN Administration PAIN Ondansetron HCl 4 mg 06/04/17 00:03 Zofran Injection IVPB Q4H PRN NAUSEA AND/OR VOMITING ASSESSMENT AND PLAN: This is a 31 year old woman with a history of a brain lesion, a breast lesion, appendectomy, migraines who presented to the ER with chest pain. 1. Choledocholithiasis - GI consult appreciated - Continue NPO, IV fluid, morphine as needed for pain, Zofran as needed for nausea - Plan for ERCP - Surgery consult
--- NOTE | 2017-06-04 22:45 | CONSULT ---
Consult Consult Specialty:: General Surgery Referred by:: Dr. Christensen Reason for Consultation:: choledocholithiasis with cholelithiasis - History of Present Illness Chief Complaint: epigastric pain radiating to back History of Present Illness: 31yo healthy F with h/o fibroadenoma excision and cysts in breasts, laparoscopy for likely ruptured ovarian cyst, began having epigastric/chest pain radiating to back on Friday, along with a cough. She went to her PMD for the pain and cough. He gave her pain medicine, but the pain continued to get worse over the next several days, and she came to ER yesterday. She felt some chills last Friday and had low-grade (99s) temp at home yesterday. No n/v, no d/c, less appetite last few days. In ER, she was afebrile with normal wbc. LFTs elevated, normal lipase; US showed gallstones with mild wall thickening, no fluid, dilated cbd 9mm with 14x8mm stone in it. She also has intermittent chest/breast pain attributed to cysts in breasts, for which she gets mammograms every 6 months. She had chest CTA in ER, negative for acute pathology. She was admitted to medicine with GI consultation, who plan ERCP tomorrow. She has been NPO and is now hungry, but still has some epigastric discomfort, though the pain is better. Surgery is consulted given choledocholithiasis for possible cholecystectomy. - History Source History Provided By: Patient Limitations to Obtaining History: No Limitations - Past Medical History Reproductive: Yes: Other (had ruptured ovarian cyst requiring laparoscopy; cystic breasts - has mammo's q6m) ...LMP: 05/09/17 ...: No ...: 3 ...Para: 3 (all ) - Past Surgical History Past Surgical History: Yes: Breast Biopsy (fibroadenoma out 10 yrs ago) Additional Surgical History: laparoscopy for tube/ovary problem, sounds like ruptured ovarian cyst with bleeding - Alcohol/Substance Use Hx Alcohol Use: No History of Substance Use: reports: None - Smoking History Smoking history: Never smoked Have you smoked in the past 12 months: No - Social History Usual Living Arrangement: With Spouse 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 Home Medications - Allergies Allergies/Adverse Reactions: Allergies Allergy/AdvReac Type Severity Reaction Status Date / Time apple Allergy Verified 06/04/17 22:47 kiwi Allergy Verified 06/04/17 22:47 peach Allergy Verified 06/04/17 22:47 strawberry Allergy Verified 06/04/17 22:47 - Home Medications Home Medications: Ambulatory Orders Ibuprofen [Motrin -] 600 mg PO TID 06/03/17 Family Disease History - Family Disease History Family Disease History: Other: Father (gall stones), Mother (gall stones ) Review of Systems - Review of Systems Constitutional: reports: Chills, Fever (low grade temps last couple days) Eyes: denies: Blurred Vision, Recent Change in Vision HENT: reports: Other (TMJ problems, cannot open mouth wider than two finger- widths without pain/popping of joint). denies: Nasal Congestion, Throat Pain Neck: denies: Swollen Glands, Tenderness Cardiovascular: reports: Chest Pain (over last 2 years, intermittent, could be in part breast cyst pain). denies: Palpitations Respiratory: reports: Cough (since Friday), SOB (when she gets chest pain) Gastrointestinal: reports: Abdominal Pain (epigastric, with hpi). denies: Constipation, Diarrhea, Nausea, Vomiting Genitourinary: denies: Burning, Dysuria Breasts: reports: Pain (follows cysts in breast, which are sometimes painful) Musculoskeletal: denies: Back Pain, Joint Pain, Muscle Pain Integumentary: denies: Change in Color, Rash Neurological: reports: Dizziness (with hpi only). denies: Headache Psychiatric: denies: Anxiety, Depression Physical Exam Vital Signs: Vital Signs Temperature 99.2 F 06/04/17 18:47 Pulse Rate 72 06/04/17 18:47 Respiratory Rate 18 06/04/17 18:47 Blood Pressure 103/62 06/04/17 18:47 O2 Sat by Pulse Oximetry (%) 99 06/04/17 17:00 Constitutional: Yes: Well Nourished, No Distress, Calm Eyes: Yes: Conjunctiva Clear, EOM Intact. No: Sclera Icterus HENT: Yes: Atraumatic, Normocephalic Neck: Yes: Supple, Trachea Midline Cardiovascular: Yes: Regular Rate and Rhythm. No: Murmur Respiratory: Yes: Regular, CTA Bilaterally Gastrointestinal: Yes: Soft, Hyperactive Bowel Sounds, Tenderness (mild diffuse) , Tenderness, Epigastrium (mostly, no R/G). No: Distention ...Rectal Exam: Yes: Deferred Renal/: No: CVA Tenderness - Left, CVA Tenderness - Right Musculoskeletal: No: Back Pain, Joint Swelling Extremities: No: Cool, Cyanosis Edema: No Peripheral Pulses WNL: Yes Integumentary: No: Jaundice, Rash Neurological: Yes: Alert, Oriented Labs: CBC, BMP 06/04/17 06:00 06/04/17 06:00 CMP Sodium 142 mmol/L (136-145) 06/04/17 06:00 Potassium 3.7 mmol/L (3.5-5.1) 06/04/17 06:00 Chloride 108 mmol/L (98-107) H 06/04/17 06:00 Carbon Dioxide 25 mmol/L (21-32) 06/04/17 06:00 Anion Gap 9 (8-16) 06/04/17 06:00 BUN 10 mg/dL (7-18) D 06/04/17 06:00 Creatinine 0.3 mg/dL (0.55-1.02) L D 06/04/17 06:00 Creat Clearance w eGFR > 60 (>60) 06/04/17 06:00 Random Glucose 84 mg/dL (74-106) D 06/04/17 06:00 Calcium 7.9 mg/dL (8.5-10.1) L 06/04/17 06:00 Phosphorus 2.7 mg/dL (2.5-4.9) 06/04/17 06:00 Magnesium 1.9 mg/dL (1.8-2.4) 06/04/17 06:00 Total Bilirubin 0.4 mg/dL (0.2-1.0) D 06/04/17 06:00 AST 77 U/L (15-37) H D 06/04/17 06:00 ALT 114 U/L (12-78) H 06/04/17 06:00 Alkaline Phosphatase 96 U/L (45-117) 06/04/17 06:00 Creatine Kinase 63 IU/L (26-192) 06/04/17 06:00 Troponin I < 0.02 ng/ml (0.00-0.05) 06/04/17 06:00 Total Protein 6.1 g/dl (6.4-8.2) L 06/04/17 06:00 Albumin 3.4 g/dl (3.4-5.0) 06/04/17 06:00 Lipase 136 U/L (73-393) 06/03/17 18:30 Serum , Qual Negative 06/03/17 Unknown Imaging - Results Cat Scan: Report Reviewed (chest CTA negative) Ultrasound: Report Reviewed (gallstones with mild wall thickening, no pericholecystic fluid, cbd 9mm with 14 x 8 mm stone) Problem List - Problems (1) Calculus of gallbladder and bile duct with obstruction without cholecystitis Assessment/Plan: admitted to medicine GI consulted - plan ERCP tomorrow NPO/IVF pt still with epigastric tenderness Discussed laparoscopic possible open cholecystectomy with patient and . Will discuss timing and R/B/A further pending ERCP tomorrow. Code(s): K80.71 - CALCULUS OF GB AND BILE DUCT W/O CHOLECYST W OBSTRUCTION (2) Epigastric pain Code(s): R10.13 - EPIGASTRIC PAIN (3) Cystic disease of breast Code(s): N60.19 - DIFFUSE CYSTIC MASTOPATHY OF UNSPECIFIED BREAST Qualifiers: Laterality: unspecified laterality Qualified Code(s): N60.19 - Diffuse cystic mastopathy of unspecified breast
--- NOTE | 2017-06-05 06:09 | PN ---
Physical Exam: SUBJECTIVE: Patient seen and examined at bedside. pain controlled. no new complaints. OBJECTIVE: Vital Signs Period Temp Pulse Resp BP Sys/Juares Pulse Ox Last 24 Hr 98.3 F-99.2 F 70-76 18-20 93-114/54-75 97-99 GENERAL: The patient is awake, alert, and fully oriented, in no acute distress. HEAD: Normal with no signs of trauma. EYES: extraocular movements intact, sclera anicteric, conjunctiva clear. No ptosis. NECK: Trachea midline, full range of motion, supple. LUNGS: Breath sounds equal, clear to auscultation bilaterally, no wheezes, no crackles, no accessory muscle use. HEART: Regular rate and rhythm, S1, S2 without murmur, rub or gallop. ABDOMEN: Soft, nontender, nondistended, normoactive bowel sounds, no guarding, no rebound, no hepatosplenomegaly, no masses. EXTREMITIES: 2+ pulses, warm, well-perfused, no edema. NEUROLOGICAL: Cranial nerves II through X grossly intact. Normal speech, gait not observed. PSYCH: Normal mood, normal affect. SKIN: Warm, dry, normal turgor, no rashes or lesions noted Laboratory Results - last 24 hr 06/04/17 06/04/17 06/04/17 06:00 06:00 06:00 WBC 5.4 RBC 3.79 Hgb 11.8 Hct 34.0 MCV 89.8 MCH 31.1 MCHC 34.7 RDW 12.9 Plt Count 192 MPV 7.8 Neutrophils % 66.6 Lymphocytes % 27.2 D Monocytes % 5.2 Eosinophils % 0.7 Basophils % 0.3 PT with INR INR PTT (Actin FS) Sodium Potassium Chloride Carbon Dioxide Anion Gap BUN Creatinine Creat Clearance w eGFR Random Glucose Calcium Phosphorus Magnesium Total Bilirubin AST ALT Alkaline Phosphatase Creatine Kinase 63 Troponin I < 0.02 Total Protein Albumin Blood Type O POSITIVE Antibody Screen Negative 06/04/17 06/04/17 06/04/17 06:00 06:00 11:10 WBC RBC Hgb Hct MCV MCH MCHC RDW Plt Count MPV Neutrophils % Lymphocytes % Monocytes % Eosinophils % Basophils % PT with INR 12.20 H INR 1.11 PTT (Actin FS) 33.1 Sodium 142 Potassium 3.7 Chloride 108 H Carbon Dioxide 25 Anion Gap 9 BUN 10 D Creatinine 0.3 L D Creat Clearance w eGFR > 60 Random Glucose 84 D Calcium 7.9 L Phosphorus 2.7 Magnesium 1.9 Total Bilirubin 0.4 D AST 77 H D ALT 114 H Alkaline Phosphatase 96 Creatine Kinase Troponin I Total Protein 6.1 L Albumin 3.4 Blood Type O POSITIVE Antibody Screen Active Medications Generic Name Dose Route Start Last Admin Trade Name Freq PRN Reason Stop Dose Admin Sodium Chloride 1,000 mls @ 75 mls/hr 06/04/17 01:45 06/05/17 00:00 Normal Saline - IV 75 mls/hr ASDIR PEDRO Administration Morphine Sulfate 2 mg 06/03/17 23:46 06/04/17 11:53 Morphine Injection - IVPUSH 2 mg Q4H PRN Administration PAIN Ondansetron HCl 4 mg 06/04/17 00:03 Zofran Injection IVPB Q4H PRN NAUSEA AND/OR VOMITING ASSESSMENT/PLAN: Pt is a 31 y/o F with PMH brain lesion (stable), breast lesion (stable), migraine who presented to ED with abdominal pain. Pt is being admitted for choledocholithiasis. #RUQ tenderness 2/2 Choledocholithiasis -RUQ US shows 14mm distal CBD stone, No pericholecystic fluid, mild wall thickening -GI consult suggests ERCP -surgery consult for possible cholecystectomy -NS at 100 -Zofran PRN -Tylenol 650 PRN, Morphine 2mg Q6 PRN #Transaminitis -likely 2/2 choledocholithiasis -trend LFTs #GERD -symptoms possibly 2/2 choledocholithiasis -No clear GERD symptoms at this time. Will monitor #Migraines -Tylenol PRN -Morphine PRN #Breast lesion -f/u outpatient as per PCP -c/o breast pain; will monitor #Brain lesion -f/u outpatient as per PCP #FEN -NS @ 100 -lytes WNL -NPO #Dispo: -Admit to Med-Surg for choledocholithiasis workup and treatment Visit type - Emergency Visit Emergency Visit: Yes ED Registration Date: 06/03/17 Care time: The patient presented to the Emergency Department on the above date and was hospitalized for further evaluation of their emergent condition. - New Patient This patient is new to me today: No - Critical Care Critical Care patient: No
[2017-06-05 08:51] LABS: MCH 30.1 pg (25.7-33.7); MCHC 33.6 g/dl (32.0-36.0); MEAN CELL VOLUME 89.7 fl (80-96); MEAN PLT VOLUME 7.7 fl (7.5-11.1); PLATELET COUNT 166 K/MM3 (134-434); RDW 12.6 % (11.6-15.6); WHITE BLOOD COUNT 4.7 K/mm3 (4.0-10.0)
[2017-06-05 09:22] LABS: ALBUMIN 3.3 g/dl (3.4-5.0); ALK PHOS 81 U/L (45-117); ANION GAP 12 (8-16); BILIRUBIN,TOTAL 0.6 mg/dL (0.2-1.0); CALCIUM 7.6 mg/dL (8.5-10.1); CO2 19 mmol/L (21-32); CREATININE 0.3 mg/dL (0.55-1.02); GLUCOSE,RANDOM 53 mg/dL (74-106); SGOT/AST 24 U/L (15-37); SGPT/ALT 67 U/L (12-78); TOT PROT 5.9 g/dl (6.4-8.2)
[2017-06-05 10:04] LABS: INR 1.19 (0.82-1.09); PROTHROMBIN TIME (PATIENT) 13.1 SEC (9.98-11.88)
[2017-06-05] MEDS ORDERED: ePHEDrine SULFATE 50 MG/1 ML AMPULE ONE (12:53)
[2017-06-05] MEDS ORDERED: MIDAZOLAM HCL 2 MG/2 ML SINGLE DOSE VIAL ONE (12:53)
[2017-06-05] MEDS ORDERED: PROPOFOL 20 ML ONE (12:53)
[2017-06-05] MEDS ORDERED: LIDOCAINE HCL/PF 2% SDV 5ML VIAL ONE (12:53)
[2017-06-05] MEDS ORDERED: cefTRIAXone SODIUM 1 GM VIAL ONE (13:38)
[2017-06-05] MEDS ORDERED: INDOMETHACIN 50 MG RECTAL SUPPOSITORY PR ONE ×2 (13:45)
[2017-06-05] MEDS ORDERED: cefTRIAXone 1 GM/50 ML BAG (PRE-DOCKED) IVPB ONE (13:47)
[2017-06-05] MEDS ORDERED: DEXAMETHASONE SOD PHOSPHATE 10 MG/1 ML VIAL ONE (13:56)
[2017-06-05] MEDS ORDERED: ONDANSETRON 4 MG/2 ML VIAL ONE (13:59)
[2017-06-05] MEDS ORDERED: IOHEXOL 300 MG/ML INFUS..BTL IV ONE (14:08)
[2017-06-05] MEDS: ONDANSETRON 4 MG/2 ML VIAL IVPB PRN (15:41)
[2017-06-05] MEDS: morphine CARPU-JECT 2 MG/1 ML DISP.SYRIN IVPUSH PRN (15:42)
--- NOTE | 2017-06-05 15:48 | PN ---
Progress Note (short form) - Note Progress Note: Pt seen in recovery after ERCP with sphincterotomy and stone removal. c/o throat and substernal pain. Still with some epigastric pain. Sleepy but responsive. Family at bedside. Vital Signs Period Temp Pulse Resp BP Sys/Juares Pulse Ox Last 24 Hr 97.9 F-99.2 F 62-102 14-20 93-132/48-82 99-100 PE: sleepy but arousable and responsive AT/NC, anicteric abdomen soft, nondistended, tender epigastric and mildly diffusely, no R/G no edema or jaundice CBCD WBC 4.7 K/mm3 (4.0-10.0) 06/05/17 07:40 RBC 3.79 M/mm3 (3.60-5.2) 06/05/17 07:40 Hgb 11.4 GM/dL (10.7-15.3) 06/05/17 07:40 Hct 34.0 % (32.4-45.2) 06/05/17 07:40 MCV 89.7 fl (80-96) 06/05/17 07:40 MCHC 33.6 g/dl (32.0-36.0) 06/05/17 07:40 RDW 12.6 % (11.6-15.6) 06/05/17 07:40 Plt Count 166 K/MM3 (134-434) 06/05/17 07:40 MPV 7.7 fl (7.5-11.1) 06/05/17 07:40 CMP Sodium 138 mmol/L (136-145) 06/05/17 07:40 Potassium 3.6 mmol/L (3.5-5.1) 06/05/17 07:40 Chloride 107 mmol/L (98-107) 06/05/17 07:40 Carbon Dioxide 19 mmol/L (21-32) L D 06/05/17 07:40 Anion Gap 12 (8-16) 06/05/17 07:40 BUN 11 mg/dL (7-18) 06/05/17 07:40 Creatinine 0.3 mg/dL (0.55-1.02) L 06/05/17 07:40 Creat Clearance w eGFR > 60 (>60) 06/05/17 07:40 Calcium 7.6 mg/dL (8.5-10.1) L 06/05/17 07:40 Total Bilirubin 0.6 mg/dL (0.2-1.0) D 06/05/17 07:40 AST 24 U/L (15-37) D 06/05/17 07:40 ALT 67 U/L (12-78) D 06/05/17 07:40 Alkaline Phosphatase 81 U/L (45-117) 06/05/17 07:40 Total Protein 5.9 g/dl (6.4-8.2) L 06/05/17 07:40 Albumin 3.3 g/dl (3.4-5.0) L 06/05/17 07:40 A/P: cholelithiasis and choledocholithiasis s/p ERCP with sphincterotomy and stone removal per GI, was mainly sludge and sand, not big stone, in duct wire went into pancreatic duct once will check labs in am to ensure no chemical pancreatitis continue NPO/IVF until postop pain meds prn perioperative antibiotics, could continue now until after OR (Cefoxitin ok) laparoscopic possible open cholecystectomy scheduled for 11 am tomorrow patient and family aware will discuss R/B/A in detail with patient in am and have informed consent signed Problem List - Problems (1) Calculus of gallbladder and bile duct with obstruction without cholecystitis Code(s): K80.71 - CALCULUS OF GB AND BILE DUCT W/O CHOLECYST W OBSTRUCTION (2) Epigastric pain Code(s): R10.13 - EPIGASTRIC PAIN (3) Cystic disease of breast Code(s): N60.19 - DIFFUSE CYSTIC MASTOPATHY OF UNSPECIFIED BREAST Qualifiers: Laterality: unspecified laterality Qualified Code(s): N60.19 - Diffuse cystic mastopathy of unspecified breast
[2017-06-05] MEDS: SODIUM CHLORIDE 1,000 ML IV SCH ×2 (15:52)
--- NOTE | 2017-06-05 16:40 | PN ---
Teaching Attending Note Name of Resident: Biju Villarreal ATTENDING PHYSICIAN STATEMENT I saw and evaluated the patient. I reviewed the resident's note and discussed the case with the resident. I agree with the resident's findings and plan as documented. SUBJECTIVE: Patient complains of abdominal pain. OBJECTIVE: Vital Signs Period Temp Pulse Resp BP Sys/Juares Pulse Ox Last 24 Hr 97.7 F-99.2 F 62-102 14-20 93-132/48-82 99-100 HEART: S1S2, tachycardic LUNGS: Clear ABDOMEN: Soft, non-distended, RUQ/epigastric tenderness, normal BS EXTREMITIES: No edema Current Medications Generic Name Dose Route Start Last Admin Trade Name Freq PRN Reason Stop Dose Admin Sodium Chloride 1,000 mls @ 75 mls/hr 06/04/17 01:45 06/05/17 15:52 Normal Saline - IV 75 mls/hr ASDIR PEDRO Administration Morphine Sulfate 2 mg 06/03/17 23:46 06/05/17 15:42 Morphine Injection - IVPUSH 2 mg Q4H PRN Administration PAIN Ondansetron HCl 4 mg 06/04/17 00:03 06/05/17 15:41 Zofran Injection IVPB 4 mg Q4H PRN Administration NAUSEA AND/OR VOMITING ASSESSMENT AND PLAN: This is a 31 year old woman with a history of a brain lesion, a breast lesion, appendectomy, migraines who presented to the ER with chest pain. 1. Choledocholithiasis - Surgery consult appreciated - Continue NPO, IV fluid, morphine as needed for pain, Zofran as needed for nausea - Plan for ERCP followed by cholecystectomy
[2017-06-06] MEDS: SODIUM CHLORIDE 1,000 ML IV SCH (05:57)
--- NOTE | 2017-06-06 06:14 | PN ---
Physical Exam: SUBJECTIVE: Patient seen and examined at bedside. s/p ERCP yesterday. Patient is for lap karson today. Pain controlled. OBJECTIVE: Vital Signs Period Temp Pulse Resp BP Sys/Juares Pulse Ox Last 24 Hr 97.7 F-98.3 F 60-71 14-20 93-132/51-82 98-100 GENERAL: The patient is awake, alert, and fully oriented, in no acute distress. HEAD: Normal with no signs of trauma. EYES: extraocular movements intact, sclera anicteric, conjunctiva clear. No ptosis. NECK: Trachea midline, full range of motion, supple. LUNGS: Breath sounds equal, clear to auscultation bilaterally, no wheezes, no crackles, no accessory muscle use. HEART: Regular rate and rhythm, S1, S2 without murmur, rub or gallop. ABDOMEN: Soft, tenderness to palpation in RUQ, nondistended, normoactive bowel sounds, no guarding, no rebound, no hepatosplenomegaly, no masses. EXTREMITIES: 2+ pulses, warm, well-perfused, no edema. NEUROLOGICAL: Cranial nerves II through X grossly intact. Normal speech, gait not observed. PSYCH: Normal mood, normal affect. SKIN: Warm, dry, normal turgor, no rashes or lesions noted Laboratory Results - last 24 hr 06/05/17 06/05/17 06/05/17 07:40 07:40 09:35 WBC 4.7 RBC 3.79 Hgb 11.4 Hct 34.0 MCV 89.7 MCH 30.1 MCHC 33.6 RDW 12.6 Plt Count 166 MPV 7.7 PT with INR 13.10 H INR 1.19 H Sodium 138 Potassium 3.6 Chloride 107 Carbon Dioxide 19 L D Anion Gap 12 BUN 11 Creatinine 0.3 L Creat Clearance w eGFR > 60 Random Glucose 53 L D Calcium 7.6 L Total Bilirubin 0.6 D AST 24 D ALT 67 D Alkaline Phosphatase 81 Total Protein 5.9 L Albumin 3.3 L Active Medications Generic Name Dose Route Start Last Admin Trade Name Freq PRN Reason Stop Dose Admin Sodium Chloride 1,000 mls @ 75 mls/hr 06/04/17 01:45 06/06/17 05:57 Normal Saline - IV 75 mls/hr ASDIR PEDRO Administration Morphine Sulfate 2 mg 06/03/17 23:46 06/05/17 15:42 Morphine Injection - IVPUSH 2 mg Q4H PRN Administration PAIN Ondansetron HCl 4 mg 06/04/17 00:03 06/05/17 15:41 Zofran Injection IVPB 4 mg Q4H PRN Administration NAUSEA AND/OR VOMITING ASSESSMENT/PLAN: Pt is a 31 y/o F with PMH brain lesion (stable), breast lesion (stable), migraine who presented to ED with abdominal pain. Pt is being admitted for choledocholithiasis. #RUQ tenderness 2/2 Choledocholithiasis -RUQ US shows 14mm distal CBD stone, No pericholecystic fluid, mild wall thickening -s/p ERCP -for lap Karson today -Zofran PRN -Tylenol 650 PRN, Morphine 2mg Q6 PRN #Transaminitis- resolved -likely 2/2 choledocholithiasis -trend LFTs #GERD- controlled -No clear GERD symptoms at this time. Will monitor #Migraines- controlled -Tylenol PRN -Morphine PRN #Breast lesion -f/u outpatient as per PCP -c/o breast pain; will monitor #Brain lesion -f/u outpatient as per PCP #FEN -NS @ 100 -lytes WNL -NPO #Dispo: -Admit to Med-Surg s/p ERCP and lap karson Visit type - Emergency Visit Emergency Visit: Yes ED Registration Date: 06/03/17 Care time: The patient presented to the Emergency Department on the above date and was hospitalized for further evaluation of their emergent condition. - New Patient This patient is new to me today: No - Critical Care Critical Care patient: No
[2017-06-06 07:05] LABS: BASOPHIL 0.3 % (0-2.0); EOSINOPHIL 0.2 % (0-4.5); MCH 30.3 pg (25.7-33.7); MCHC 34.3 g/dl (32.0-36.0); MEAN CELL VOLUME 88.2 fl (80-96); MEAN PLT VOLUME 7.2 fl (7.5-11.1); NEUTROPHILS 67.6 % (42.8-82.8); PLATELET COUNT 200 K/MM3 (134-434); RDW 12.2 % (11.6-15.6); WHITE BLOOD COUNT 6.3 K/mm3 (4.0-10.0)
--- NOTE | 2017-06-06 07:18 | PN ---
Progress Note, Physician History of Present Illness: s/p ERCP with spincterotomy. No events overnight. - Current Medication List Current Medications: Active Medications Sodium Chloride (Normal Saline -) 1,000 mls @ 75 mls/hr IV ASDIR PEDRO Last Admin: 06/06/17 05:57 Dose: 75 mls/hr Morphine Sulfate (Morphine Injection -) 2 mg IVPUSH Q4H PRN PRN Reason: PAIN Last Admin: 06/05/17 15:42 Dose: 2 mg Ondansetron HCl (Zofran Injection) 4 mg IVPB Q4H PRN PRN Reason: NAUSEA AND/OR VOMITING Last Admin: 06/05/17 15:41 Dose: 4 mg - Objective Vital Signs: Vital Signs Temperature 98.3 F 06/06/17 05:59 Pulse Rate 62 06/06/17 05:59 Respiratory Rate 20 06/06/17 05:59 Blood Pressure 93/51 06/06/17 05:59 O2 Sat by Pulse Oximetry (%) 98 06/05/17 21:00 Constitutional: Yes: No Distress, Calm Eyes: Yes: Conjunctiva Clear HENT: No: Hoarseness Neck: Yes: Supple Cardiovascular: Yes: Regular Rate and Rhythm Respiratory: Yes: Regular, CTA Bilaterally Gastrointestinal: Yes: Normal Bowel Sounds, Soft. No: Distention, Hematemesis, Melena, Palpable Mass, Pulsatile Mass, Rectal Bleeding, Tenderness, Tenderness, Epigastrium, Tenderness, Rebound, Vomiting Integumentary: No: Jaundice Labs: CBC, BMP 06/05/17 07:40 INR, PTT INR 1.19 (0.82-1.09) H 06/05/17 09:35 Laboratory Results - last 24 hr 06/05/17 06/05/17 06/05/17 07:40 07:40 09:35 WBC 4.7 RBC 3.79 Hgb 11.4 Hct 34.0 MCV 89.7 MCH 30.1 MCHC 33.6 RDW 12.6 Plt Count 166 MPV 7.7 PT with INR 13.10 H INR 1.19 H Sodium 138 Potassium 3.6 Chloride 107 Carbon Dioxide 19 L D Anion Gap 12 BUN 11 Creatinine 0.3 L Creat Clearance w eGFR > 60 Random Glucose 53 L D Calcium 7.6 L Total Bilirubin 0.6 D AST 24 D ALT 67 D Alkaline Phosphatase 81 Total Protein 5.9 L Albumin 3.3 L Problem List - Problems (1) Choledocholithiasis with obstruction Code(s): K80.51 - CALCULUS OF BILE DUCT W/O CHOLANGITIS OR CHOLECYST W OBST Qualifiers: Cholangitis presence: without cholangitis Qualified Code(s): K80.51 - Calculus of bile duct without cholangitis or cholecystitis with obstruction (2) Breast pain, right Code(s): N64.4 - MASTODYNIA Impression/Plan Impression/Plan: Cholesystectomy Visit type - Emergency Visit Emergency Visit: No - New Patient This patient is new to me today: No - Critical Care Critical Care patient: No
--- NOTE | 2017-06-06 07:36 | PN ---
Progress Note (short form) - Note Progress Note: Pt seen and examined ambulating and in bed. s/p ERCP with sphincterotomy and stone removal yesterday. Throat pain is better, still with some epigastric pain , but less than prior. Vital Signs Period Temp Pulse Resp BP Sys/Juares Pulse Ox Last 24 Hr 97.7 F-98.3 F 60-71 14-20 93-132/51-82 98-100 PE: A&O sclera anicteric, AT/NC abdomen soft, nondistended, mild tenderness epigastric, RUQ, LLQ, no R/G no jaundice or rash labs pending this am wbc normal A/P: cholelithiasis and choledocholithiasis s/p ERCP with sphincterotomy and stone removal checking labs to ensure no chemical pancreatitis for laparoscopic possible open cholecystectomy todaycontinue NPO/IVF until postop pain meds prn perioperative antibiotics Discussed with patient risks, benefits and alternatives of laparoscopic possible open cholecystectomy, including but not limited to bleeding, infection , injury to adjacent structures, leak or injury, intraabdominal abscess, need for further procedures, ; alternatives include delayed or no surgery - risks of this include recurrence of gallbladder problems, pancreatitis. Patient desires to proceed with operation - will take to OR for above. Informed consent signed for same. Anticipate resuming po postop Encourage nonnarcotic pain meds prn postop Monitor labs Likely d/c home in am if tolerating po, ambulating, voiding, on oral pain meds Instructions in d/c plan Pt to call for appt to f/u with me in 2 weeks - given my card. Problem List - Problems (1) Calculus of gallbladder and bile duct with obstruction without cholecystitis Code(s): K80.71 - CALCULUS OF GB AND BILE DUCT W/O CHOLECYST W OBSTRUCTION (2) Epigastric pain Code(s): R10.13 - EPIGASTRIC PAIN (3) Cystic disease of breast Code(s): N60.19 - DIFFUSE CYSTIC MASTOPATHY OF UNSPECIFIED BREAST Qualifiers: Laterality: unspecified laterality Qualified Code(s): N60.19 - Diffuse cystic mastopathy of unspecified breast
[2017-06-06 07:44] LABS: ALBUMIN 3.6 g/dl (3.4-5.0); BILIRUBIN,DIRECT 0.1 mg/dL (0.0-0.2); BILIRUBIN,TOTAL 0.5 mg/dL (0.2-1.0); TOT PROT 6.4 g/dl (6.4-8.2)
[2017-06-06] MEDS ORDERED: LIDOCAINE HCL/PF 2% SDV 5ML VIAL ONE (11:22)
[2017-06-06] MEDS ORDERED: MIDAZOLAM HCL 2 MG/2 ML SINGLE DOSE VIAL ONE (11:22)
[2017-06-06] MEDS ORDERED: PROPOFOL 20 ML ONE (11:22)
[2017-06-06] MEDS ORDERED: SUCCINYLCHOLINE CHLORIDE 200 MG/10 ML VIAL ONE (11:22)
[2017-06-06] MEDS ORDERED: ROCURONIUM BROMIDE 50 MG/5 ML VIAL ONE (11:22)
[2017-06-06 11:43] LABS: ANION GAP 9 (8-16); CALCIUM 8.3 mg/dL (8.5-10.1); CO2 23 mmol/L (21-32); CREATININE 0.5 mg/dL (0.55-1.02); GLUCOSE,RANDOM 88 mg/dL (74-106)
[2017-06-06] MEDS ORDERED: cefOXitin SODIUM 1 GM VIAL (RESTRICTED TO ID) IVPB ONE (11:45)
[2017-06-06] MEDS ORDERED: CEFOXITIN SODIUM 1 GM IVPB ONE (11:47)
[2017-06-06] MEDS ORDERED: LIDOCAINE HCL 1%, 10 MG/ML (20ML VIAL) ONE (12:20)
[2017-06-06] MEDS ORDERED: BUPIVACAINE HCL/PF 0.5% (5MG/ML) 10 ML VIAL ONE (12:21)
[2017-06-06] MEDS ORDERED: DESFLURANE GAS 240 ML BOTTLE IH ONE (12:43)
[2017-06-06] MEDS ORDERED: DEXAMETHASONE SOD PHOSPHATE 4 MG/1 ML VIAL ONE (13:50)
--- NOTE | 2017-06-06 14:07 | OP ---
Operative Note - Note: Operative Date: 06/06/17 Pre-Operative Diagnosis: cholelithiasis and choledocholithiasis Operation: laparoscopic cholecystectomy Findings: elongated gallbladder with multiple stones, dense adhesions at the base/ infundibulum; critical view obtained; enlarged cystic duct - stapled across with 45 blue load; JEANINE left in gallbladder fossa Post-Operative Diagnosis: Same as Pre-op Surgeon: Monroe Gomez Packaging Operator: Candelario Polanco Anesthesiologist/[employer] PRODUCTION TECHNICIAN: Joellen Fowler (lolita/Deisi Mayo) Anesthesia: General, Local (20ml 1% lidocaine + 0.5% marcaine) Specimens Removed: gallbladder and stones to pathology Estimated Blood Loss (mls): 10 Drains & Tubes with Location: JEANINE drain in gallbladder fossa to bulb suction Fluid Volume Replaced (mls): 1,000 (crystalloid) Operative Report Dictated: Yes
[2017-06-06] MEDS ORDERED: oxyCODONE HCL 5 MG TABLET PO PRN (14:11)
[2017-06-06] MEDS ORDERED: LACTATED RINGERS SOLUTION 1,000 ML IV SCH ×2 (14:15)
[2017-06-06] MEDS ORDERED: morphine CARPU-JECT 4 MG/1 ML DISP.SYRIN IVPUSH PRN (14:35)
[2017-06-06] MEDS ORDERED: ACETAMINOPHEN 1000 MG/100 ML VIAL (NON FORMULARY) IVPB ONE ×2 (17:00→19:30)
--- NOTE | 2017-06-06 17:01 | PN ---
Teaching Attending Note Name of Resident: Biju Villarreal ATTENDING PHYSICIAN STATEMENT I saw and evaluated the patient. I reviewed the resident's note and discussed the case with the resident. I agree with the resident's findings and plan as documented. SUBJECTIVE: No complaints. OBJECTIVE: Vital Signs Period Temp Pulse Resp BP Sys/Juares Pulse Ox Last 24 Hr 97.6 F-99.0 F 54-77 12-20 93-118/50-72 97-100 HEART: S1S2, RRR LUNGS: Clear ABDOMEN: Soft, non-distended, non-tender, normal BS EXTREMITIES: No edema Current Medications Generic Name Dose Route Start Last Admin Trade Name Freq PRN Reason Stop Dose Admin Acetaminophen 650 mg 06/06/17 14:10 Tylenol - PO Q6H PRN FEVER OR PAIN Acetaminophen 1,000 mg 06/06/17 17:00 Ofirmev Injection - IVPB 06/06/17 17:01 ONCE ONE Docusate Sodium 100 mg 06/06/17 22:00 Colace - PO BID PEDRO Fentanyl 25 mcg 06/06/17 14:13 06/06/17 15:00 Sublimaze Injection - IVPUSH 06/09/17 14:14 25 mcg [id number] PRN Administration PAIN Lactated Ringer's 1,000 mls @ 125 mls/hr 06/06/17 14:15 Lactated Ringers Solution IV ASDIR PEDRO Lactated Ringer's 1,000 mls @ 100 mls/hr 06/06/17 14:15 Lactated Ringers Solution IV ASDIR PEDRO Morphine Sulfate 4 mg 06/06/17 14:35 Morphine Injection - IVPUSH Q3H PRN SEVERE PAIN Ondansetron HCl 4 mg 06/04/17 00:03 06/05/17 15:41 Zofran Injection IVPB 4 mg Q4H PRN Administration NAUSEA AND/OR VOMITING Oxycodone HCl 5 mg 06/06/17 14:13 Roxicodone - PO Q4H PRN MILD PAIN Oxycodone HCl 5 mg 06/06/17 14:11 Roxicodone - PO Q4H PRN PAIN LEVEL 6-10 ASSESSMENT AND PLAN: This is a 31 year old woman with a history of a brain lesion, a breast lesion, appendectomy, migraines who presented to the ER with chest pain. 1. Choledocholithiasis - s/p ERCP 06/05 - s/p laparoscopic cholecystectomy today - JEANINE drain left in place - Clear liquids tonight, advance as tolerated - IV fluid - Pain control
[2017-06-06] MEDS ORDERED: CEFOXITIN SODIUM 1 GM in DEXTROSE 5%-WATER 100 ML IVPB ONE (18:00)
[2017-06-06] MEDS: DOCUSATE SODIUM 100 MG CAPSULE (FP) PO SCH (22:24)
[2017-06-07] MEDS: ACETAMINOPHEN 325 MG TABLET (FP) PO PRN ×3 (07:01→19:07)
[2017-06-07 07:16] LABS: MCH 30.5 pg (25.7-33.7); MCHC 34.5 g/dl (32.0-36.0); MEAN CELL VOLUME 88.6 fl (80-96); MEAN PLT VOLUME 7.2 fl (7.5-11.1); PLATELET COUNT 169 K/MM3 (134-434); RDW 12.7 % (11.6-15.6)
[2017-06-07 07:40] LABS: ALBUMIN 3.1 g/dl (3.4-5.0); ANION GAP 8 (8-16); CALCIUM 7.9 mg/dL (8.5-10.1); CO2 27 mmol/L (21-32); GLUCOSE,RANDOM 80 mg/dL (74-106); SGPT/ALT 57 U/L (12-78)
[2017-06-07 07:43] LABS: ALK PHOS 64 U/L (45-117); BILIRUBIN,TOTAL 0.7 mg/dL (0.2-1.0); CREATININE 0.4 mg/dL (0.55-1.02); SGOT/AST 21 U/L (15-37); TOT PROT 5.6 g/dl (6.4-8.2)
[2017-06-07] MEDS ORDERED: KETOROLAC TROMETHAMINE 30 MG/1 ML VIAL IVPUSH PRN (09:57)
[2017-06-07] MEDS ORDERED: LACTATED RINGERS SOLUTION 1,000 ML IV SCH (09:58)
--- NOTE | 2017-06-07 09:59 | PN ---
Progress Note, Physician Chief Complaint: postop pain History of Present Illness: patient complain of most pain at subxiphoid incision. no n/v. pain meds helping. drain 70cc/24hrs labs ok - Current Medication List Current Medications: Active Medications Acetaminophen (Tylenol -) 650 mg PO Q6H PRN PRN Reason: FEVER OR PAIN Last Admin: 06/07/17 07:01 Dose: 650 mg Docusate Sodium (Colace -) 100 mg PO BID PEDRO Last Admin: 06/06/17 22:24 Dose: Not Given Fentanyl (Sublimaze Injection -) 25 mcg IVPUSH [id number] PRN PRN Reason: PAIN Stop: 06/09/17 14:14 Last Admin: 06/06/17 15:00 Dose: 25 mcg Ketorolac Tromethamine (Toradol Injection -) 30 mg IVPUSH Q6H PRN PRN Reason: PAIN Stop: 06/12/17 09:56 Morphine Sulfate (Morphine Injection -) 4 mg IVPUSH Q3H PRN PRN Reason: SEVERE PAIN Last Admin: 06/06/17 16:38 Dose: 4 mg Ondansetron HCl (Zofran Injection) 4 mg IVPB Q4H PRN PRN Reason: NAUSEA AND/OR VOMITING Last Admin: 06/05/17 15:41 Dose: 4 mg Oxycodone HCl (Roxicodone -) 5 mg PO Q4H PRN PRN Reason: MILD PAIN Oxycodone HCl (Roxicodone -) 5 mg PO Q4H PRN PRN Reason: PAIN LEVEL 6-10 - Objective Vital Signs: Vital Signs Temperature 68.1 F L 06/07/17 06:30 Pulse Rate 64 06/07/17 06:30 Respiratory Rate 18 06/07/17 06:30 Blood Pressure 106/62 06/07/17 06:30 O2 Sat by Pulse Oximetry (%) 96 06/06/17 21:00 Constitutional: Yes: No Distress, Calm Gastrointestinal: Yes: Soft, Tenderness (farrukh-incisional. drain is serosanguinous.). No: Distention Labs: CBC, BMP 06/07/17 06:00 06/07/17 06:00 INR, PTT INR 1.19 (0.82-1.09) H 06/05/17 09:35 Problem List - Problems (1) Choledocholithiasis with acute cholecystitis Assessment/Plan: s/p lap karson cont drain for now adv to low fat diet add toradol to help with analgesia cont percocet ambulate Code(s): K80.42 - CALCULUS OF BILE DUCT W ACUTE CHOLECYSTITIS W/O OBSTRUCTION
--- NOTE | 2017-06-07 10:14 | PN ---
Teaching Attending Note Name of Resident: Ghassan Manuel ATTENDING PHYSICIAN STATEMENT I saw and evaluated the patient. I reviewed the resident's note and discussed the case with the resident. I agree with the resident's findings and plan as documented. SUBJECTIVE: Patient complaining of abdominal pain. OBJECTIVE: Vital Signs Period Temp Pulse Resp BP Sys/Juares Pulse Ox Last 24 Hr 68.1 F-99.2 F 58-79 12-19 93-118/50-72 96-100 HEART: S1S2, RRR LUNGS: Clear ABDOMEN: Soft, non-distended, (+) RUQ/epigastric tenderness, normal BS EXTREMITIES: No edema Current Medications Generic Name Dose Route Start Last Admin Trade Name Freq PRN Reason Stop Dose Admin Acetaminophen 650 mg 06/06/17 14:10 06/07/17 07:01 Tylenol - PO 650 mg Q6H PRN Administration FEVER OR PAIN Docusate Sodium 100 mg 06/06/17 22:00 06/06/17 22:24 Colace - PO Not Given BID [facility] Fentanyl 25 mcg 06/06/17 14:13 06/06/17 15:00 Sublimaze Injection - IVPUSH 06/09/17 14:14 25 mcg [id number] PRN Administration PAIN Lactated Ringer's 1,000 mls @ 50 mls/hr 06/07/17 09:58 Lactated Ringers Solution IV ASDIR [facility] Ketorolac Tromethamine 30 mg 06/07/17 09:57 Toradol Injection - IVPUSH 06/12/17 09:56 Q6H PRN PAIN Morphine Sulfate 4 mg 06/06/17 14:35 06/06/17 16:38 Morphine Injection - IVPUSH 4 mg Q3H PRN Administration SEVERE PAIN Ondansetron HCl 4 mg 06/04/17 00:03 06/05/17 15:41 Zofran Injection IVPB 4 mg Q4H PRN Administration NAUSEA AND/OR VOMITING Oxycodone HCl 5 mg 06/06/17 14:13 Roxicodone - PO Q4H PRN MILD PAIN Oxycodone HCl 5 mg 06/06/17 14:11 Roxicodone - PO Q4H PRN PAIN LEVEL 6-10 ASSESSMENT AND PLAN: This is a 31 year old woman with a history of a brain lesion, a breast lesion, appendectomy, migraines who presented to the ER with chest pain. 1. Choledocholithiasis - s/p ERCP 06/05 - s/p laparoscopic cholecystectomy 06/06 - JEANINE drained 70 cc/24 hrs - Pain control - Ambulation - Incentive spirometer - Diet advanced 2. Hypokalemia - Replete potassium
[2017-06-07] MEDS: ONDANSETRON 4 MG/2 ML VIAL IVPB PRN (10:53)
[2017-06-07] MEDS: DOCUSATE SODIUM 100 MG CAPSULE (FP) PO SCH ×2 (11:00→21:04)
--- NOTE | 2017-06-07 11:58 | PN ---
Physical Exam: SUBJECTIVE: Patient seen and examined at bedside. No acute events overnight. Pt c/o abdominal pain. Did not eat her clear diet breakfast yet and says she does not have much of an appetite at this time. She has not been walking due to pain and has only taken tylenol although other pain meds are available PRN. Pt made aware that she has other pain meds available to her. OBJECTIVE: Vital Signs Temperature 98.2 F 06/06/17 23:01 Pulse Rate 64 06/07/17 06:30 Respiratory Rate 18 06/07/17 06:30 Blood Pressure 106/62 06/07/17 06:30 O2 Sat by Pulse Oximetry (%) 96 06/06/17 21:00 GENERAL: The patient is awake, alert, and fully oriented, in no acute distress. HEAD: Normal with no signs of trauma. EYES: extraocular movements intact ENT: Ears normal, nares patent NECK: full range of motion LUNGS: Breath sounds equal, clear to auscultation bilaterally HEART: Regular rate and rhythm, S1, S2+ ABDOMEN: +tenderness to palpation in RUQ. JEANINE drain in place with serosanguineous fluid. Soft, nondistended, bowel sounds present. EXTREMITIES: warm, well-perfused NEUROLOGICAL: Normal speech, gait not observed. PSYCH: Normal mood, normal affect. SKIN: Warm, dry Laboratory Results - last 24 hr 06/07/17 06/07/17 06:00 06:00 WBC 8.0 RBC 3.61 Hgb 11.0 D Hct 32.0 L MCV 88.6 MCH 30.5 MCHC 34.5 RDW 12.7 Plt Count 169 MPV 7.2 L Sodium 142 Potassium 3.3 L Chloride 107 Carbon Dioxide 27 Anion Gap 8 BUN 8 Creatinine 0.4 L Creat Clearance w eGFR > 60 Random Glucose 80 Calcium 7.9 L Total Bilirubin 0.7 D AST 21 ALT 57 Alkaline Phosphatase 64 D Total Protein 5.6 L Albumin 3.1 L Active Medications Generic Name Dose Route Start Last Admin Trade Name Freq PRN Reason Stop Dose Admin Acetaminophen 650 mg 06/06/17 14:10 06/07/17 07:01 Tylenol - PO 650 mg Q6H PRN Administration FEVER OR PAIN Docusate Sodium 100 mg 06/06/17 22:00 06/07/17 11:00 Colace - PO Not Given BID PEDRO Fentanyl 25 mcg 06/06/17 14:13 06/06/17 15:00 Sublimaze Injection - IVPUSH 06/09/17 14:14 25 mcg [id number] PRN Administration PAIN Lactated Ringer's 1,000 mls @ 50 mls/hr 06/07/17 09:58 06/07/17 10:52 Lactated Ringers Solution IV 50 mls/hr ASDIR PEDRO Administration Ketorolac Tromethamine 30 mg 06/07/17 09:57 06/07/17 10:56 Toradol Injection - IVPUSH 06/12/17 09:56 30 mg Q6H PRN Administration PAIN Morphine Sulfate 4 mg 06/06/17 14:35 06/06/17 16:38 Morphine Injection - IVPUSH 4 mg Q3H PRN Administration SEVERE PAIN Ondansetron HCl 4 mg 06/04/17 00:03 06/07/17 10:53 Zofran Injection IVPB 4 mg Q4H PRN Administration NAUSEA AND/OR VOMITING Oxycodone HCl 5 mg 06/06/17 14:13 Roxicodone - PO Q4H PRN MILD PAIN Oxycodone HCl 5 mg 06/06/17 14:11 Roxicodone - PO Q4H PRN PAIN LEVEL 6-10 Potassium Chloride 40 meq 06/07/17 11:21 K-Dur - PO 06/07/17 11:22 ONCE ONE ASSESSMENT/PLAN: 31 y/o F w/PMH of brain lesion (stable), breast lesion (stable), migraines admitted for choledocholithiasis. s/p ERCP 06/05/17 and s/p cholecystectomy . -Choledocholithiasis -s/p ERCP 06/05/17 -s/p cholecystectomy 06/06/17; POD #1 -JEANINE drain in place with serosanguineous drainage (70 ml today) -c/w drain -Pain control w/tylenol 650 mg po q6h prn or morphine 4mg q3h prn (severe pain), or oxycodone 5mg q4h prn (mild pain), or ketorolac 30 mg ivp q6h prn -advised pt to use morphine or ketorolac as pain does not seem to be adequately controlled tylenol alone -also advised pt to use incentive spirometer and to ambulate and using pain meds can facilitate both -diet advanced to low fat diet. If not able to tolerate will downgrade to liquid diet. -DVT ppx -pt not ambulating at this time. Advised to ambulate. Will also start SCDs. -FEN -LR @ 50 ml/hr -K+ at 3.3, repleted, monitor lytes -low fat diet. Will downgrade if pt unable to tolerate. -Dispo -monitor on med/surg Problem List - Problems (1) Choledocholithiasis with acute cholecystitis Code(s): K80.42 - CALCULUS OF BILE DUCT W ACUTE CHOLECYSTITIS W/O OBSTRUCTION (2) Epigastric pain Code(s): R10.13 - EPIGASTRIC PAIN Visit type - Emergency Visit Emergency Visit: Yes ED Registration Date: 06/03/17 Care time: The patient presented to the Emergency Department on the above date and was hospitalized for further evaluation of their emergent condition. - New Patient This patient is new to me today: No - Critical Care Critical Care patient: No
[2017-06-07] MEDS ORDERED: POTASSIUM CHLORIDE TABS 20 MEQ TABLET.ER (FP) PO ONE ×2 (12:30→15:15)
[2017-06-07] MEDS: oxyCODONE HCL 5 MG TABLET PO PRN ×2 (13:09→19:06)
[2017-06-08] MEDS: oxyCODONE HCL 5 MG TABLET PO PRN ×2 (05:25→13:30)
[2017-06-08] MEDS: ACETAMINOPHEN 325 MG TABLET (FP) PO PRN (05:26)
[2017-06-08 07:19] LABS: MCH 30.7 pg (25.7-33.7); MCHC 34.6 g/dl (32.0-36.0); MEAN CELL VOLUME 88.7 fl (80-96); MEAN PLT VOLUME 7.5 fl (7.5-11.1); PLATELET COUNT 170 K/MM3 (134-434); RDW 12.3 % (11.6-15.6); WHITE BLOOD COUNT 5.5 K/mm3 (4.0-10.0)
[2017-06-08 07:26] LABS: ALBUMIN 3.2 g/dl (3.4-5.0); ANION GAP 7 (8-16); CALCIUM 8.3 mg/dL (8.5-10.1); CO2 26 mmol/L (21-32); CREATININE 0.4 mg/dL (0.55-1.02); GLUCOSE,RANDOM 77 mg/dL (74-106); MAGNESIUM 1.9 mg/dL (1.8-2.4)
[2017-06-08] MEDS: DOCUSATE SODIUM 100 MG CAPSULE (FP) PO SCH ×2 (09:12→21:43)
[2017-06-08] MEDS: SODIUM CHLORIDE 1,000 ML IV SCH (10:41)
--- NOTE | 2017-06-08 12:44 | PN ---
Physical Exam: SUBJECTIVE: Patient seen and examined. Pain is improving. No nausea, vomiting. OBJECTIVE: Vital Signs Period Temp Pulse Resp BP Sys/Juares Pulse Ox Last 24 Hr 98.3 F-99 F 59-79 18-20 92-108/54-67 97-99 GENERAL: The patient is awake, alert, and fully oriented, in no acute distress. LUNGS: Breath sounds equal, clear to auscultation bilaterally, no wheezes, no crackles, no accessory muscle use. HEART: Regular rate and rhythm, S1, S2 without murmur, rub or gallop. ABDOMEN: Soft, (+) RUQ/epigastric tenderness, nondistended, normoactive bowel sounds, no guarding, no rebound, no hepatosplenomegaly, no masses, JEANINE drain in place. EXTREMITIES: 2+ pulses, warm, well-perfused, no edema. Laboratory Results - last 24 hr 06/08/17 06/08/17 06:00 06:00 WBC 5.5 D RBC 3.81 Hgb 11.7 Hct 33.8 MCV 88.7 MCH 30.7 MCHC 34.6 RDW 12.3 Plt Count 170 MPV 7.5 Sodium 139 Potassium 3.6 Chloride 106 Carbon Dioxide 26 Anion Gap 7 L BUN 7 Creatinine 0.4 L Random Glucose 77 Calcium 8.3 L Phosphorus 3.0 Magnesium 1.9 Albumin 3.2 L Active Medications Generic Name Dose Route Start Last Admin Trade Name Freq PRN Reason Stop Dose Admin Acetaminophen 650 mg 06/06/17 14:10 06/08/17 05:26 Tylenol - PO 650 mg Q6H PRN Administration FEVER OR PAIN Docusate Sodium 100 mg 06/06/17 22:00 06/08/17 09:12 Colace - PO 100 mg BID PEDRO Administration Fentanyl 25 mcg 06/06/17 14:13 06/06/17 15:00 Sublimaze Injection - IVPUSH 06/09/17 14:14 25 mcg [id number] PRN Administration PAIN Sodium Chloride 1,000 mls @ 83 mls/hr 06/08/17 10:15 06/08/17 10:41 Normal Saline - IV 83 mls/hr ASDIR PEDRO Administration Ketorolac Tromethamine 30 mg 06/07/17 09:57 06/07/17 10:56 Toradol Injection - IVPUSH 06/12/17 09:56 30 mg Q6H PRN Administration PAIN Morphine Sulfate 4 mg 06/06/17 14:35 06/06/17 16:38 Morphine Injection - IVPUSH 4 mg Q3H PRN Administration SEVERE PAIN Ondansetron HCl 4 mg 06/04/17 00:03 06/07/17 10:53 Zofran Injection IVPB 4 mg Q4H PRN Administration NAUSEA AND/OR VOMITING Oxycodone HCl 5 mg 06/06/17 14:13 06/08/17 05:25 Roxicodone - PO 5 mg Q4H PRN Administration MILD PAIN Oxycodone HCl 5 mg 06/06/17 14:11 Roxicodone - PO Q4H PRN PAIN LEVEL 6-10 ASSESSMENT/PLAN: This is a 31 year old woman with a history of a brain lesion, a breast lesion, appendectomy, migraines who presented to the ER with chest pain. 1. Choledocholithiasis - s/p ERCP 06/05 - s/p laparoscopic cholecystectomy 06/06 - Pain control - Ambulation - Incentive spirometer - Surgery follow-up 2. Hypokalemia - Improved Visit type - Emergency Visit Emergency Visit: Yes ED Registration Date: 06/03/17 Care time: The patient presented to the Emergency Department on the above date and was hospitalized for further evaluation of their emergent condition. - New Patient This patient is new to me today: No - Critical Care Critical Care patient: No - Discharge Referral Referred to [facility] No
[2017-06-08] MEDS ORDERED: SODIUM CHLORIDE 1,000 ML IV STA (14:34)
--- NOTE | 2017-06-08 20:37 | PN ---
Progress Note, Physician Chief Complaint: epigastric pain History of Present Illness: s/p lap karson POD2, s/p ERCP w/sphincterotomy & stone removal POD3 (GI) Pt seen and examined in bed. Has ambulated today couple times. Tolerating diet today. Pain was worse this morning, but has only needed pain pills 2-3 times today. Was somewhat dizzy earlier walking and had slightly low BP (90s/50s). Responded to fluid bolus and has kept IVF on today. Feels better. Most pain is now right-sided and some incisional. Voiding and passing flatus, but no BM yet. JEANINE drain serosanguineous, 130ml yesterday, 105ml today. - Current Medication List Current Medications: Active Medications Acetaminophen (Tylenol -) 650 mg PO Q6H PRN PRN Reason: FEVER OR PAIN Last Admin: 06/08/17 05:26 Dose: 650 mg Docusate Sodium (Colace -) 100 mg PO BID [facility] Last Admin: 06/08/17 09:12 Dose: 100 mg Fentanyl (Sublimaze Injection -) 25 mcg IVPUSH [id number] PRN PRN Reason: PAIN Stop: 06/09/17 14:14 Last Admin: 06/06/17 15:00 Dose: 25 mcg Sodium Chloride (Normal Saline -) 1,000 mls @ 83 mls/hr IV ASDIR [facility] Last Admin: 06/08/17 10:41 Dose: 83 mls/hr Ketorolac Tromethamine (Toradol Injection -) 30 mg IVPUSH Q6H PRN PRN Reason: PAIN Stop: 06/12/17 09:56 Last Admin: 06/07/17 10:56 Dose: 30 mg Ondansetron HCl (Zofran Injection) 4 mg IVPB Q4H PRN PRN Reason: NAUSEA AND/OR VOMITING Last Admin: 06/07/17 10:53 Dose: 4 mg Oxycodone HCl (Roxicodone -) 5 mg PO Q4H PRN PRN Reason: PAIN LEVEL 6-10 - Objective Vital Signs: Vital Signs Temperature 98.4 F 06/08/17 18:00 Pulse Rate 86 06/08/17 18:00 Respiratory Rate 18 06/08/17 18:00 Blood Pressure 93/46 06/08/17 18:00 O2 Sat by Pulse Oximetry (%) 99 06/08/17 09:00 Vital Signs Period Temp Pulse Resp BP Sys/Juares Pulse Ox Last 24 Hr 98.3 F-98.9 F 59-86 18-20 92-103/46-67 97-99 Constitutional: Yes: Well Nourished, No Distress, Calm Eyes: Yes: Conjunctiva Clear, EOM Intact. No: Sclera Icterus Cardiovascular: Yes: Regular Rate and Rhythm. No: Murmur Respiratory: Yes: Regular, CTA Bilaterally Gastrointestinal: Yes: Normal Bowel Sounds, Soft, Tenderness (RUQ/RLQ, no R/G; also incisional at subxiphoid and umbilical sites). No: Distention, Tenderness , Epigastrium Wound/Incision: Yes: Well Approximated, Steri Strips (with mild, dry staining x 3 sites - left open to air), Dressing Dry and Intact (x4, small spot of old staining on subxiphoid), Dressing Removed (x3 - JEANINE dressing left in place (c/d/i )), Other (no s/s infection) Neurological: Yes: Alert, Oriented Labs: CBC, BMP 06/08/17 06:00 06/08/17 06:00 Problem List - Problems (1) Calculus of gallbladder and bile duct with obstruction without cholecystitis Assessment/Plan: POD2 s/p lap karson POD3 s/p ERCP w/sphincterotomy & stone removal by GI feeling better pain controlled with po meds today, encouraged nonnarcotic meds first fluids given for lower BP with improvement - will continue IVF until morning pt encouraged to drink fluids tolerating diet OOB but needs to ambulate more dressings off, steristrips ok continue JEANINE drain until drainage <30ml/day Pt will likely go home with JEANINE drain - will have nurses teach emptying and recording of drainage tomorrow No showers until drain out (sponge bathing ok) If home tomorrow, she will need to make appt to see me Friday in clinic Will follow with you Code(s): K80.71 - CALCULUS OF GB AND BILE DUCT W/O CHOLECYST W OBSTRUCTION (2) Epigastric pain Code(s): R10.13 - EPIGASTRIC PAIN (3) Cystic disease of breast Code(s): N60.19 - DIFFUSE CYSTIC MASTOPATHY OF UNSPECIFIED BREAST Qualifiers: Laterality: unspecified laterality Qualified Code(s): N60.19 - Diffuse cystic mastopathy of unspecified breast; N60.19 - Diffuse cystic mastopathy of unspecified breast
[2017-06-09] MEDS: SODIUM CHLORIDE 1,000 ML IV SCH (03:29)
[2017-06-09] MEDS: DOCUSATE SODIUM 100 MG CAPSULE (FP) PO SCH (09:13)
--- NOTE | 2017-06-09 11:14 | PN ---
Progress Note, Physician Chief Complaint: epigastric pain History of Present Illness: s/p lap karson POD3, s/p ERCP w/sphincterotomy & stone removal POD4 (GI) Pt seen and examined sitting in chair. Has ambulated some. Tolerating diet. Pain is better today, feels better today. Voiding and passing flatus, but no BM yet. JEANINE drain serosanguineous turning serous, 125ml total yesterday, 30ml so far today. - Current Medication List Current Medications: Active Medications Acetaminophen (Tylenol -) 650 mg PO Q6H PRN PRN Reason: FEVER OR PAIN Last Admin: 06/08/17 05:26 Dose: 650 mg Docusate Sodium (Colace -) 100 mg PO BID PEDRO Last Admin: 06/09/17 09:13 Dose: 100 mg Fentanyl (Sublimaze Injection -) 25 mcg IVPUSH [id number] PRN PRN Reason: PAIN Stop: 06/09/17 14:14 Last Admin: 06/06/17 15:00 Dose: 25 mcg Ketorolac Tromethamine (Toradol Injection -) 30 mg IVPUSH Q6H PRN PRN Reason: PAIN Stop: 06/12/17 09:56 Last Admin: 06/07/17 10:56 Dose: 30 mg Ondansetron HCl (Zofran Injection) 4 mg IVPB Q4H PRN PRN Reason: NAUSEA AND/OR VOMITING Last Admin: 06/07/17 10:53 Dose: 4 mg Oxycodone HCl (Roxicodone -) 5 mg PO Q4H PRN PRN Reason: PAIN LEVEL 6-10 - Objective Vital Signs: Vital Signs Temperature 98.8 F 06/09/17 06:00 Pulse Rate 71 06/09/17 06:00 Respiratory Rate 20 06/09/17 09:00 Blood Pressure 136/67 06/09/17 06:00 O2 Sat by Pulse Oximetry (%) 99 06/09/17 09:00 Vital Signs Period Temp Pulse Resp BP Sys/Juares Pulse Ox Last 24 Hr 98.4 F-98.8 F 64-86 18-20 92-136/46-67 99-99 Constitutional: Yes: Well Nourished, No Distress, Calm Eyes: Yes: Conjunctiva Clear, EOM Intact. No: Sclera Icterus Gastrointestinal: Yes: Soft, Tenderness (RUQ/RLQ and incisional, no R/G), Other (JEANINE RUQ turning serous, small amount in bulb). No: Distention Wound/Incision: Yes: Clean/Dry, Well Approximated, Steri Strips, Dressing Dry and Intact (JEANINE site clean) Neurological: Yes: Alert, Oriented Labs: no new labs Problem List - Problems (1) Calculus of gallbladder and bile duct with obstruction without cholecystitis Assessment/Plan: POD3 s/p lap karson POD4 s/p ERCP w/sphincterotomy & stone removal by GI feeling better pain controlled with po meds - has not had any yet today but will get tylenol BP improved, no dizziness tolerating diet will give dulcolax now OOB but needs to ambulate more wounds clean and dry, steri's intact JEANINE turning serous, drainage decreasing Pt ok to go home with JEANINE drain - will have nurses teach emptying and recording of drainage No showers until drain out (sponge bathing ok) Tylenol/ibuprofen ok prn for pain. If given small amount of Tyl/narcotic combo ( [facility], [facility], [place]), she needs to continue stool softeners bid while using Rx pain med. She will need to make appt to see me Friday in clinic - given my card She is to bring written record of JEANINE drainage with her to appt Instructions are in d/c plan Code(s): K80.71 - CALCULUS OF GB AND BILE DUCT W/O CHOLECYST W OBSTRUCTION (2) Epigastric pain Code(s): R10.13 - EPIGASTRIC PAIN (3) Cystic disease of breast Code(s): N60.19 - DIFFUSE CYSTIC MASTOPATHY OF UNSPECIFIED BREAST Qualifiers: Laterality: unspecified laterality Qualified Code(s): N60.19 - Diffuse cystic mastopathy of unspecified breast; N60.19 - Diffuse cystic mastopathy of unspecified breast
[2017-06-09] MEDS ORDERED: BISACODYL 5 MG TABLET.DR (FP) PO ONE (11:15)
[2017-06-09] MEDS ORDERED: IBUPROFEN 400 MG TABLET (FP) PO PRN (11:18)
[2017-06-09 11:24] VITALS: BP 94/63; PULSE 63; TEMP 98
--- NOTE | 2017-06-09 11:45 | PN ---
Teaching Attending Note Name of Resident: Biju Villarreal ATTENDING PHYSICIAN STATEMENT I saw and evaluated the patient. I reviewed the resident's note and discussed the case with the resident. I agree with the resident's findings and plan as documented. SUBJECTIVE: Patient is feeling better. OBJECTIVE: Vital Signs Period Temp Pulse Resp BP Sys/Juares Pulse Ox Last 24 Hr 98 F-98.8 F 63-86 18-20 92-136/46-67 99-99 HEART: S1S2, RRR LUNGS: Clear ABDOMEN: Soft, non-distended, non-tender, normal BS EXTREMITIES: No edema Current Medications Generic Name Dose Route Start Last Admin Trade Name Freq PRN Reason Stop Dose Admin Acetaminophen 650 mg 06/06/17 14:10 06/08/17 05:26 Tylenol - PO 650 mg Q6H PRN Administration FEVER OR PAIN Docusate Sodium 100 mg 06/06/17 22:00 06/09/17 09:13 Colace - PO 100 mg BID PEDRO Administration Fentanyl 25 mcg 06/06/17 14:13 06/06/17 15:00 Sublimaze Injection - IVPUSH 06/09/17 14:14 25 mcg [id number] PRN Administration PAIN Ibuprofen 400 mg 06/09/17 11:18 06/09/17 11:39 Motrin - PO 400 mg Q6H PRN Administration PAIN Ondansetron HCl 4 mg 06/04/17 00:03 06/07/17 10:53 Zofran Injection IVPB 4 mg Q4H PRN Administration NAUSEA AND/OR VOMITING Oxycodone HCl 5 mg 06/06/17 14:11 Roxicodone - PO Q4H PRN PAIN LEVEL 6-10 ASSESSMENT AND PLAN: This is a 31 year old woman with a history of a brain lesion, a breast lesion, appendectomy, migraines who presented to the ER with chest pain. 1. Choledocholithiasis - s/p ERCP 06/05 - s/p laparoscopic cholecystectomy 06/06 - Discharge home with JEANINE drain and follow-up with Dr. Gomez 06/11 2. Hypokalemia - Improved
--- NOTE | 2017-06-09 13:24 | DS ---
Physical Exam: SUBJECTIVE: Patient seen and examined at bedside. No new complaints. Pain controlled. Patient is not moving her bowels, but is passing gas. OBJECTIVE: Vital Signs Period Temp Pulse Resp BP Sys/Juares Pulse Ox Last 24 Hr 98 F-98.8 F 63-86 18-20 92-136/46-67 99-99 PHYSICAL EXAM GENERAL: The patient is awake, alert, and fully oriented, in no acute distress. HEAD: Normal with no signs of trauma. EYES: extraocular movements intact, sclera anicteric, conjunctiva clear. NECK: Trachea midline, full range of motion, supple. LUNGS: Breath sounds equal, clear to auscultation bilaterally, no wheezes, no crackles, no accessory muscle use. HEART: Regular rate and rhythm, S1, S2 without murmur, rub or gallop. ABDOMEN: Soft, nontender, nondistended, normoactive bowel sounds, no guarding, no rebound, no hepatosplenomegaly, no masses. surgical scars free of erythema or confluence. JEANINE drain in place and draining serosanquinous fluid. EXTREMITIES: 2+ pulses, warm, well-perfused, no edema. NEUROLOGICAL: Cranial nerves II through X grossly intact. Normal speech, gait not observed. PSYCH: Normal mood, normal affect. SKIN: Warm, dry, normal turgor, no rashes or lesions noted. LABS HOSPITAL COURSE: Date of Admission:06/03/17 Patient is a 31 year old female with past medical history of brain lesion ( stable), breast lesion (stable), and migraine who presented to the ED with upper abdominal pain. She was recently seen by the ED for a complaint of chest pain. She was found to have GERD and was given protonix and referred to see a GI specialist as outpatient. Patient returned to the ED four days later and was admitted for choledocolithiasis. Ultrasound showed multiple stones in the gallbladder and in the cytic duct with mild GB thickening. GI and surgery were both consulted. Patient underwent an endoscopy and ERCP on 06/[address] Sterling. Patient then underwent a cholecystectomy on 06/[address] Gomez. a JEANINE drain was placed gallbladder fossa, draining serosanguinous fluid. Patient was discharged on percocet for pain control. She was instructed to follow up as an outpatient with Dr. Gomez to have her JEANINE drain removed. She was also instructed to follow up with her PCP. Date of Discharge: 06/09/17 Minutes to complete discharge: 20 Discharge Summary Reason For Visit: CALCULUS OF COMMON BILE DUCT Condition: Improved - Instructions Diet, Activity, Other Instructions: You had ERCP with sphincterotomy and stone removal by Dr. Sterling of Gastroenterology on 06/05/17. Postoperative instructions: You had a laparoscopic cholecystectomy on 06/06/[address] Monroe Gomez of [facility]. Activity: Resume your usual activities gradually, but no heavy exertion or lifting more than 10-15 pounds for 1 month. Sticky tapes on incisions will fall off by themselves. Leave the gauze dressing over where the drain comes out. Your drain bulb should be emptied and measured 1-2 times a day; keep a record of how much comes out each time. Bring the record with you to your surgical appointment. You may NOT shower until the drain is removed. Take sponge baths as needed at home. Eat lightly at first, but advance to your usual diet as tolerated. Pain: For pain, you may use and alternate Tylenol (acetaminophen) and/or Ibuprofen every 4-6 hours as needed. If you are prescribed a Tylenol/narcotic combination for severe pain, use it instead of plain Tylenol as needed and switch back when your pain starts decreasing. Do not take more than 3000mg of acetaminophen in a day. Take medications as prescribed or indicated on the labeling. If you do take narcotic medications, please take a stool softener as they may cause you to become constipated. Follow-up: Call Dr. Gomez's office at [phone] to make your postop appointment for drain removal (on Friday). Clinic is held in the [facility] on the first floor of [facility]. Call the office if you have: * increasing pain not responsive to pain medication * fever of 101F or higher * vomiting * unusual or increasing bleeding or drainage from wounds * increasing redness or swelling at wound sites * inability to urinate * problems with the drain including bleeding or significant change in color or quantity of output Also, see your primary medical doctor within 1-2 weeks. Referrals: Monroe Gomez MD [Staff Physician] - STAFF,NOT ON [Primary Care Provider] - Disposition: HOME - Home Medications Comprehensive Discharge Medication List: Ambulatory Orders Ibuprofen [Motrin -] 600 mg PO TID 06/03/17 Oxycodone HCl/Acetaminophen [Percocet 5-325 mg Tablet] 1 tab PO BID PRN #5 tablet MDD 2 06/09/17 Problem List - Problems (1) Choledocholithiasis with obstruction Code(s): K80.51 - CALCULUS OF BILE DUCT W/O CHOLANGITIS OR CHOLECYST W OBST Qualifiers: Cholangitis presence: without cholangitis Qualified Code(s): K80.51 - Calculus of bile duct without cholangitis or cholecystitis with obstruction; K80.51 - Calculus of bile duct without cholangitis or cholecystitis with obstruction (2) Cystic disease of breast Code(s): N60.19 - DIFFUSE CYSTIC MASTOPATHY OF UNSPECIFIED BREAST Qualifiers: Laterality: unspecified laterality Qualified Code(s): N60.19 - Diffuse cystic mastopathy of unspecified breast; N60.19 - Diffuse cystic mastopathy of unspecified breast (3) Status post cholecystectomy Code(s): Z90.49 - ACQUIRED ABSENCE OF OTHER SPECIFIED PARTS OF DIGESTIVE TRACT This patient is new to me today: No Emergency Visit: Yes ED Registration Date: 06/03/17 Care time: The patient presented to the Emergency Department on the above date and was hospitalized for further evaluation of their emergent condition. Critical Care patient: No - Discharge Referral Referred to [facility] Med [facility].C.: No
--- NOTE | 2017-06-10 12:09 | OP ---
DATE OF OPERATION: 06/06/2017 PREOPERATIVE DIAGNOSES: Cholelithiasis and choledocholithiasis. POSTOPERATIVE DIAGNOSES: Cholelithiasis and choledocholithiasis. OPERATION: Laparoscopic cholecystectomy. SURGEON: Monroe Gomez MD DEPUTY BUILDING GUARD: Candelario Polanco MD ANESTHESIA: General endotracheal and local, 20 mL of 1% lidocaine plus 0.5% Marcaine. ESTIMATED BLOOD LOSS: 10 mL FLUIDS: One liter of crystalloid. SPECIMEN: Gallbladder and stones to Pathology. DRAINS: JEANINE drain in the gallbladder fossa to bulb suction. FINDINGS: An elongated gallbladder with multiple stones, dense adhesions of the base and the infundibulum. Critical view was ultimately obtained. There was an enlarged cystic duct, which was stapled across with a 45 blue load, and a JEANINE drain left in the gallbladder fossa. DISPOSITION: Stable and extubated to PACU. INDICATIONS FOR PROCEDURE: The patient is a 31-year-old, generally healthy female with a history of laparoscopy for likely ruptured ovarian cyst, breast cysts, and some kind of brain cyst or lesion which has not required surgery, who was admitted to the emergency room with epigastric pain radiating to the back and was found to have choledocholithiasis. She had a normal white count and somewhat-elevated LFTs but a normal lipase. She had an ultrasound showing a 14 x 8 mm filling density in the common bile duct, which was dilated to 9 mm. Yesterday, she underwent ERCP with GI with extraction of stone fragments and sludge from the common bile duct and a sphincterotomy. This morning's pancreatic enzymes are normal, as well as her LFTs, and she is brought to the OR for laparoscopic cholecystectomy. Risks, benefits , and alternatives of the procedure have been discussed with the patient including, but not limited to, bleeding, infection, injury to adjacent structures, bile duct leak or injury, need for further procedures, and the patient has signed informed consent for the same. OPERATIVE TECHNIQUE: The patient is brought to the operating room and laid supine on the operating table. Sequential compression devices were used on bilateral lower extremities, and 1 gram of Cefoxitin was given as preoperative antibiotic. After induction and intubation by Anesthesia, the patient's abdomen was prepped and draped in sterile fashion. A small supraumbilical midline incision was made with a scalpel and carried into the subcutaneous tissues with electrocautery until the abdominal wall fascia was identified, scored, and elevated with Marcie clamps. The peritoneum was entered bluntly with the tip of a clamp, and a fingertip used to ensure entry into the abdominal cavity and the absence of any underlying adhesions. A stay stitch of 0 Vicryl in figure-of-8 fashion was placed in the fascia for later closure, and the Thompson trocar introduced directly into the abdominal cavity and secured in place with the balloon. The abdomen was insufflated with carbon dioxide, and a laparoscope inserted to inspect the abdominal cavity. The patient was placed in reverse Trendelenburg position , and the gallbladder was visible under the edge of the liver. An additional 5-mm port was placed in the subxiphoid area under direct vision, and 2 additional 5-mm ports were placed in the right upper quadrant also under direct vision. Graspers were introduced through the ports and used to position and then grasp the gallbladder at its fundus and elevate it over the liver edge. It was noted to be quite elongated. A second grasper for the right side was used to grasp what was thought to be the infundibulum and retract it laterally. There were overlying adhesions of peritoneal tissue toward the base of the gallbladder. Some of these initially were peeled down with the [place] dissector, and then we elected to use the hook cautery to begin incising the peritoneal covering on the medial and lateral sides of the gallbladder as we worked our way up both sides. There was a small vascular structure noted anteriorly that was clipped, two proximally and one distally and divided with endoscissors and thought possibly to be the cystic artery. The cystic duct was either quite enlarged or had not yet been clearly visualized. As we continued to work, it became more evident that there were significantly dense, overlying adhesions at the infundibulum and toward the base of the gallbladder, that initially made it unclear as to whether we had reached the end of the gallbladder. The [place] dissector, suction/bobcat driver/labor tool, and the hook cautery were all used to continue dissection and attempt to expose the actual infundibulum and base of the gallbladder. At one point, the grasper made a hole in the gallbladder in what turned out to be its mid-portion. There was a small amount of bile spill with a little bit of sludge, which was later suctioned and irrigated clear from the abdomen. As the peritoneum was taken down from this area, and a window created behind the gallbladder, the critical view was eventually obtained. We continued dissecting the peritoneum off the gallbladder until the base of the gallbladder was more clearly visualized, and a very enlarged cystic duct noted to be the only structure still entering the gallbladder without any attachments to the liver bed itself. The width of this precluded using any clips for transection; thus, the subxiphoid port was upsized to a 12-mm port, and once we had clearly and entirely exposed the base of the gallbladder with this dilated cystic duct, a 45 blue load of the Endo LOURDES stapler was introduced and used to staple across the base of the gallbladder. Once this had been transected, no additional arterial structures were identified, but the structure that had previously been clipped was noted to be pulsating. Thus, the hook cautery was used to continue taking the gallbladder off the remainder of the liver bed. Once it had been completely , it was placed in an Endo Catch bag and retrieved out of the umbilical port site. It was left on the back table for examination prior to being passed off as a specimen. Once the Thompson trocar and pneumoperitoneum had been re-established, the field was inspected for hemostasis and to facilitate suctioning of the bile spill. The suction bobcat driver/labor tool was used to both irrigate and suction the field clear. Hemostasis was noted to be complete, but there were some blood clots suctioned up from the previous dissection of the adhesions. We then elected to leave a JEANINE drain in the gallbladder fossa. This was introduced through the subxiphoid port and drawn out of the lower right upper quadrant port after being trimmed somewhat. The JEANINE was positioned to lie in the gallbladder fossa, just under the liver edge and secured at the skin with a 3-0 nylon stitch and attached to bulb suction. The Pop-Gulshan tool was used to close the enlarged subxiphoid port site with a 0 Vicryl stitch, and the remainder of the ports and the camera were removed from the abdominal cavity, which was exsufflated of carbon dioxide. The stay suture at the umbilical site was tied to close the fascia there. All port sites were injected with local anesthetic, and 4-0 Vicryl subcuticular sutures used to close the skin at all sites including runnings at the umbilicus and subxiphoid area. Benzoin and Steri-Strips were applied to each of the incisions, which were then dressed with gauze and Tegaderm. The drain site was dressed with gauze under and over the exit and a Tegaderm as well. The gallbladder was inspected on the back table and opened along its length from the fundus toward the staple line. Multiple faceted stones, fragments and some sludge were noted inside. Counts were correct at the end of the procedure. The patient was then awakened and extubated by Anesthesia and moved back to her stretcher and taken to the recovery room in stable condition, having tolerated the procedure well. Dr. Polanco was an essential golf player assistant in both entering the abdominal cavity, retracting and manipulating the gallbladder, and eventually completed clearing the peritoneal adhesions off the gallbladder revealing the duct, stapled across the base, freed the gallbladder off of the liver bed and removed the specimen, as well as closed the subxiphoid port site. Monroe Gomez M.D. ELIN/[id number] MTDD
--- NOTE | 2017-06-10 13:43 | PATH ---
Surgical Pathology Report Patient Name: BRUNA AKINS [facility]. Rec. #: [id number] /Age/Gender: 1985 (Age: 31) / F Account: [id number] Location: [facility] MED/SURG Taken: 06/06/2017 Received: 06/09/2017 Reported: 06/10/2017 Physicians: Ruslan Villagran M.D. Specimen(s) Received GALLBLADDER Clinical History Cholelithiasis and choledocholithiasis Final Diagnosis GALLBLADDER, CHOLECYSTECTOMY: CHRONIC CHOLECYSTITIS AND CHOLELITHIASIS. Electronically Signed Cb Medina M.D. Gross Description Received in formalin labeled "gallbladder," is a 7.5 x 1.8 x 1.8 cm previously opened gallbladder with a 0.2 cm in length stapled portion of cystic duct attached. The outer surface is fontenot-echevarria and varies from smooth to shaggy. There is no bile or choleliths present within the lumen. Separately received within the same container are abundant yellow irregular to fragmented choleliths ranging from 0.2-1.0 cm in greatest dimension. The mucosa is fontenot and velvety. The wall of the gallbladder averages 0.3 cm in thickness. Sales Promotion Officer sections are submitted in one cassette. 06/09/201706/09/2017
--- NOTE | 2017-06-12 14:20 | EKG ---
Test Reason : Blood Pressure : / mmHG Vent. Rate : 068 BPM Atrial Rate : 068 BPM P-R Int : 162 ms QRS Dur : 098 ms QT Int : 410 ms P-R-T Axes : 072 053 031 degrees QTc Int : 435 ms NORMAL SINUS RHYTHM NORMAL ECG WHEN COMPARED WITH ECG OF 04-JUN-2017 00:35, NO SIGNIFICANT CHANGE WAS FOUND Confirmed by YANICK NEAL MD ([id number]) on 06/12/2017 2:19:37 PM Referred By: Confirmed By:YANICK NEAL MD
--- NOTE | 2017-06-12 16:04 | PROC ---
Endoscopy Procedure Endoscopy procedure completed. Please see scanned procedure report.
== END 2017-06-09 12:34 | disposition home or self-care (01) | DRG 263 ==
LOC: JER 16:47 → JERBED 23:35 → J7W 06-04 11:34
PROVIDERS: ADMIT Internal Medicine; ATTEND Internal Medicine
PROC: 0FC98ZZ Extirpation of Matter from Common Bile Duct, Via Natural or Artificial Opening Endoscopic (ICD-10-PCS; principal; 2017-06-05 13:00)
PROC: 0FT44ZZ Resection of Gallbladder, Percutaneous Endoscopic Approach (ICD-10-PCS; 2017-06-06)
DX: K80.71 Calculus of gallbladder and bile duct without cholecystitis with obstruction (principal); M79.1 Myalgia; G44.89 Other headache syndrome; I45.19 Other right bundle-branch block; G43.809 Other migraine, not intractable, without status migrainosus; R73.9 Hyperglycemia, unspecified; R74.0 Nonspecific elevation of levels of transaminase and lactic acid dehydrogenase [LDH]; G93.9 Disorder of brain, unspecified; R10.13 Epigastric pain; N64.4 Mastodynia; M26.69 Other specified disorders of temporomandibular joint; N60.19 Diffuse cystic mastopathy of unspecified breast; E87.6 Hypokalemia; K21.9 Gastro-esophageal reflux disease without esophagitis; Z90.49 Acquired absence of other specified parts of digestive tract
CPT/HCPCS: 36415; 71010-TC; 71275-TC; 74330-TC; 76705-TC; 80048; 80053; 80076; 81003; 82040; 82150; 83690; 83735; 84100; 84484; 84703; 85025; 85027; 85379; 85610; 85730; 86850; 86900; 86901; 87086; 88304-TC; 93005; 93010; 94760; 99285-25